=== PATIENT | male | born 1960 | race Caucasian/White ===

== ENCOUNTER 2018-08-05 10:20 | Emergency (ER) | payer MEDICARE, OTHER ==
[~2018-08-05] VITALS: Ht 170.2 cm; Wt 81.2 kg
--- NOTE | 2018-08-05 10:30 | NUR ---
BETH 40 FROM [facility] FOR AMS, PATIENT WAS FOUND ON THE FLOOR, UNRESPONSIVE PER STAFF REPORT TO EMS, UD=700. PT AAOX3, VSS. DENIES CP, SOB, DIZZINESS, LALA, N/V/D AT THIS TIME. DR. BARR @ BS FOR EVAL. PLACED ON JOURNAL BOX INSPECTOR & WILL CONT TO MONITOR.
[2018-08-05] MEDS ORDERED: LEVETIRACETAM (500MG) 1,000 MG in IV NS 0.9% 100 ML IV SCH (11:00)
[2018-08-05] MEDS ORDERED: IV NS 0.9% 1,000 ML BAG IV ONE (11:00)
--- NOTE | 2018-08-05 11:02 | NUR ---
PT TO CT VIA [facility].
[2018-08-05 11:03] LABS: BASOPHILS # (AUTO) 0.1 /CMM (0.0-0.2); BASOPHILS % (AUTO) 0.4 % (0.0-2.0); HEMATOCRIT 46 % (39-51); HEMOGLOBIN 15.9 g/dL (13.5-17.5); LYMPHOCYTES # (AUTO) 1.5 /CMM (0.8-4.8); LYMPHOCYTES % (AUTO) 12.9 % (20.0-44.0); MEAN CORPUSCULAR HGB CONC 35 g/dl (31.0-36.0); MEAN CORPUSCULAR VOLUME 91 fL (80-96); MONOCYTES # (AUTO) 0.7 /CMM (0.1-1.30); MONOCYTES % (AUTO) 6.3 % (2.0-12.0); NEUTROPHILS # (AUTO) 9.4 /CMM (1.8-8.9); NEUTROPHILS % (AUTO) 79.4 % (43.0-81.0); PLATELET COUNT (AUTO) 260 /CMM (150-450); RED BLOOD CELL COUNT(AUTO) 5.01 MIL/uL (4.5-6.0); WHITE BLOOD COUNT (AUTO) 11.9 K/uL (4.3-11.0)
[2018-08-05 11:11] LABS: CARBON DIOXIDE 28 mmol/L (21-32); CHLORIDE 97 mmol/L (98-107); CREATININE 1.2 mg/dL (0.6-1.3); GLUCOSE 123 mg/dL (74-106); SODIUM SERUM 132 mmol/L (136-145); UREA NITROGEN, BLOOD 16 mg/dL (7-18)
[2018-08-05 11:15] LABS: ACETAMINOPHEN < 2 ug/ml (10-30); ALCOHOL, BLOOD < 3 mg/dL (0-0); SALICYLATE 3.3 mg/dL (2.8-20.0)
--- NOTE | 2018-08-05 11:39 | NUR ---
PT BACK FROM CT. MEDICATED PER ERMD ORDER, PT ISH WELL.
--- NOTE | 2018-08-05 13:04 | NUR ---
CALL FROM [facility], SHE WILL SEND TRANSPORTATION TO TAKE PATIENT HOME
--- NOTE | 2018-08-05 14:00 | NUR ---
Patient discharged to home in stable condition. Written and verbal after care instructions given. Patient verbalizes understanding of instruction. IV removed. Catheter intact and site benign. Pressure and 4x4 applied to site. No bleeding noted.
[2018-08-05 15:08] VITALS: BP 138/79
== END 2018-08-05 14:00 | disposition home or self-care (01) ==
LOC: ER 10:25
DX: R55 Syncope and collapse (principal); I10 Essential (primary) hypertension; F29 Unspecified psychosis not due to a substance or known physiological condition; Z88.0 Allergy status to penicillin; Z88.8 Allergy status to other drugs, medicaments and biological substances
CPT/HCPCS: 36415; 70450; 71045; 80048; 80307; 80329; 84484; 85025; 93005; 96365; 99284; G0480; J1953; J7030 ×2

== ENCOUNTER 2018-08-14 10:09 | Emergency (ER) | payer MEDICARE, OTHER ==
[~2018-08-14] VITALS: Ht 165.1 cm; Wt 77.1 kg
--- NOTE | 2018-08-14 10:20 | NUR ---
BIB BY RA. HAMMOND. NAD. CAME IN WITH COMPLAINT OF GENERALIZED BODY PAIN. NO SOB, BREATHING EVEN AND UNLABORED. AWAITING MD DAWN
--- NOTE | 2018-08-14 10:55 | NUR ---
IV LINE ESTABLISEHED, LABS DRAWN AND SENT TO LABS
[2018-08-14] MEDS ORDERED: IV NS 0.9% 1,000 ML BAG IV ONE (11:00)
[2018-08-14 11:01] LABS: BASOPHILS % (AUTO) 0.5 % (0.0-2.0); EOSINOPHILS % (AUTO) 0.6 % (0.0-6.0); HEMATOCRIT 43 % (39-51); HEMOGLOBIN 15.6 g/dL (13.5-17.5); LYMPHOCYTES # (AUTO) 0.9 /CMM (0.8-4.8); MEAN CORPUSCULAR HGB CONC 36 g/dl (31.0-36.0); MEAN CORPUSCULAR VOLUME 90 fL (80-96); MONOCYTES # (AUTO) 0.7 /CMM (0.1-1.30); MONOCYTES % (AUTO) 6.9 % (2.0-12.0); NEUTROPHILS # (AUTO) 8.7 /CMM (1.8-8.9); PLATELET COUNT (AUTO) 309 /CMM (150-450); RED BLOOD CELL COUNT(AUTO) 4.83 MIL/uL (4.5-6.0); WHITE BLOOD COUNT (AUTO) 10.5 K/uL (4.3-11.0)
[2018-08-14 11:06] LABS: CALCIUM, SERUM 8.7 mg/dL (8.5-10.1); CARBON DIOXIDE 28 mmol/L (21-32); CHLORIDE 99 mmol/L (98-107); CREATININE 1.1 mg/dL (0.6-1.3); GLUCOSE 147 mg/dL (74-106); POTASSIUM 3.8 mmol/L (3.5-5.1); SODIUM SERUM 132 mmol/L (136-145); UREA NITROGEN, BLOOD 21 mg/dL (7-18)
[2018-08-14 11:12] LABS: ALANINE AMINOTRANSFERASE 22 U/L (12-78); ALBUMIN 3.4 g/dL (3.4-5.0); ALKALINE PHOSPHATASE 104 U/L (46-116); ASPARTATE AMINOTRANSFERASE 13 U/L (15-37); BILIRUBIN,DIRECT 0.1 mg/dL (0.0-0.2); BILIRUBIN,TOTAL 0.5 mg/dL (0.2-1.0); LIPASE 141 U/L (73-393); TOTAL PROTEIN, SERUM 7.2 g/dL (6.4-8.2)
--- NOTE | 2018-08-14 11:23 | NUR ---
XRAY AT BEDSIDE
--- NOTE | 2018-08-14 11:34 | NUR ---
CONTROL SYSTEMS TECHNICIAN IS CANDIDO BATRES (SISTER) [phone]
[2018-08-14] MEDS ORDERED: HYDROCODONE/APAP 5/325MG 1 EACH TABLET ONE (11:52)
[2018-08-14] MEDS ORDERED: IBUPROFEN 600 MG TABLET PO ONE ×2 (11:52→12:00)
[2018-08-14] MEDS ORDERED: HYDROCODONE/APAP 5/325MG 1 EACH TABLET PO ONE (12:00)
--- NOTE | 2018-08-14 12:35 | NUR ---
IV LINE DC
--- NOTE | 2018-08-14 12:40 | NUR ---
CALLED DAVIE DIETZ W// CARLEY;
--- NOTE | 2018-08-14 12:45 | NUR ---
CALLED [facility] AND SPOKE TO CALLY.
--- NOTE | 2018-08-14 12:49 | NUR ---
[facility] TRIP #[id number] [facility] [id number]
--- NOTE | 2018-08-14 13:02 | NUR ---
CALLED [facility] TO CANCEL TRIP SO [facility] SET UP THEIR OWN TRANSPORT
--- NOTE | 2018-08-14 13:06 | NUR ---
spoke with jake from [facility]. so nicolasa gee sending a vehicle to car pick up driver patient.
--- NOTE | 2018-08-14 13:11 | NUR ---
Patient discharged to home in stable condition. Written and verbal after care instructions given. Patient verbalizes understanding of instruction.
[2018-08-14 13:12] VITALS: BP 138/80
== END 2018-08-14 13:13 ==
LOC: ER 10:14
DX: M79.18 Myalgia, other site (principal); R53.1 Weakness; F29 Unspecified psychosis not due to a substance or known physiological condition; E86.0 Dehydration; F20.9 Schizophrenia, unspecified; G93.40 Encephalopathy, unspecified; I10 Essential (primary) hypertension; Z88.0 Allergy status to penicillin; Z88.8 Allergy status to other drugs, medicaments and biological substances; Z88.9 Allergy status to unspecified drugs, medicaments and biological substances
CPT/HCPCS: 36415; 71045; 80048; 80076; 82550; 83605; 83690; 84484; 85025; 85730; 87040 ×2; 87804 ×2; 93005; 96360; 99285; J7030; 87400

== ENCOUNTER 2018-09-22 11:33 | Emergency (ER) | payer MEDICARE, OTHER ==
[~2018-09-22] VITALS: Ht 167.6 cm; Wt 78.0 kg
--- NOTE | 2018-09-22 11:33 | NUR ---
PT BIBRA FROM [facility] FOR ABD PAIN; PT AAOX4, PT ON MONITOR, VSS, NAD NOTED, PENDING MD DAWN.
[2018-09-22] MEDS ORDERED: ONDANSETRON HCL/PF 4 MG/2 ML VIAL ONE (12:05)
[2018-09-22] MEDS ORDERED: HYDROMORPHONE 1 MG/1 ML DISP.SYRIN ONE (12:05)
[2018-09-22 12:11] LABS: BASOPHILS # (AUTO) 0.1 /CMM (0.0-0.2); BASOPHILS % (AUTO) 1.3 % (0.0-2.0); EOSINOPHILS % (AUTO) 2.9 % (0.0-6.0); HEMATOCRIT 43 % (39-51); HEMOGLOBIN 15.3 g/dL (13.5-17.5); LYMPHOCYTES # (AUTO) 1.3 /CMM (0.8-4.8); LYMPHOCYTES % (AUTO) 18.8 % (20.0-44.0); MEAN CORPUSCULAR HGB CONC 36 g/dl (31.0-36.0); MEAN CORPUSCULAR VOLUME 91 fL (80-96); MONOCYTES # (AUTO) 0.4 /CMM (0.1-1.30); MONOCYTES % (AUTO) 5.4 % (2.0-12.0); NEUTROPHILS # (AUTO) 4.9 /CMM (1.8-8.9); NEUTROPHILS % (AUTO) 71.6 % (43.0-81.0); PLATELET COUNT (AUTO) 272 /CMM (150-450); RED BLOOD CELL COUNT(AUTO) 4.73 MIL/uL (4.5-6.0); WHITE BLOOD COUNT (AUTO) 6.8 K/uL (4.3-11.0)
[2018-09-22] MEDS: HYDROMORPHONE INJ 2 MG/ML DISP.SYRIN IV ONE (12:12)
[2018-09-22] MEDS: ONDANSETRON HCL/PF 4 MG/2 ML VIAL IVP ONE (12:12)
[2018-09-22] MEDS: IV NS 0.9% 1,000 ML BAG IV ONE (12:12)
[2018-09-22 12:15] LABS: CALCIUM, SERUM 8.9 mg/dL (8.5-10.1); CARBON DIOXIDE 28 mmol/L (21-32); CHLORIDE 100 mmol/L (98-107); GLUCOSE 111 mg/dL (74-106); POTASSIUM 4.4 mmol/L (3.5-5.1); SODIUM SERUM 136 mmol/L (136-145); UREA NITROGEN, BLOOD 14 mg/dL (7-18)
[2018-09-22 12:21] LABS: ALANINE AMINOTRANSFERASE 24 U/L (12-78); ALBUMIN 3.3 g/dL (3.4-5.0); ALKALINE PHOSPHATASE 93 U/L (46-116); ASPARTATE AMINOTRANSFERASE 18 U/L (15-37); BILIRUBIN,TOTAL 0.3 mg/dL (0.2-1.0); LIPASE 112 U/L (73-393); TOTAL PROTEIN, SERUM 7.1 g/dL (6.4-8.2)
--- NOTE | 2018-09-22 13:45 | NUR ---
C/O FEELING DEPRESSED AND HAVE A PLAN ON JUMPING OFF A BUILDING BUT WANTS TO COME IN VOLUNTARILY TO [facility]
--- NOTE | 2018-09-22 14:00 | NUR ---
SPOKE TO SANJUANITA BLOCK FROM [facility], PER SANJUANITA, PT'S PAPERWORK NEEDS TO STATE "MEDICALLY CLEARED", DR. CARTWRIGHT MADE A HAND-WRITTEN NOTE STATING MEDICALLY CLEARED AND FAXED TO [facility]. PER SANJUANITA PT IS ACCEPTED AND CAN GO TO [facility].
--- NOTE | 2018-09-22 14:27 | NUR ---
PT LEFT IN STABLE CONDITION BACK TO [facility], PT LEFT VIA PRIVATE AMBULANCE, VSS, NAD NOTED, PT LEFT VIA GURNEY WITH 2EMTS, REPORT GIVEN TO [facility].
[2018-09-22 14:32] VITALS: BP 123/86
== END 2018-09-22 14:34 | disposition home or self-care (01) ==
LOC: ER 11:33
DX: R10.13 Epigastric pain (principal); G93.40 Encephalopathy, unspecified; I10 Essential (primary) hypertension; F29 Unspecified psychosis not due to a substance or known physiological condition; F20.9 Schizophrenia, unspecified; Z88.0 Allergy status to penicillin; Z60.2 Problems related to living alone; Z88.8 Allergy status to other drugs, medicaments and biological substances
CPT/HCPCS: 36415; 71045; 74176; 80048; 80076; 82550; 83690; 84484; 85025; 93005; 96374; 96375; 99284; J1170; J2405; J7030

== ENCOUNTER 2018-09-23 10:32 | Emergency (ER) | payer MEDICARE, OTHER ==
[~2018-09-23] VITALS: Ht 167.6 cm; Wt 76.2 kg
[2018-09-23 10:51] LABS: BASOPHILS # (AUTO) 0.1 /CMM (0.0-0.2); BASOPHILS % (AUTO) 0.9 % (0.0-2.0); EOSINOPHILS % (AUTO) 1.2 % (0.0-6.0); HEMATOCRIT 47 % (39-51); HEMOGLOBIN 16.5 g/dL (13.5-17.5); LYMPHOCYTES # (AUTO) 1.7 /CMM (0.8-4.8); LYMPHOCYTES % (AUTO) 15.1 % (20.0-44.0); MEAN CORPUSCULAR HGB CONC 36 g/dl (31.0-36.0); MEAN CORPUSCULAR VOLUME 91 fL (80-96); MONOCYTES # (AUTO) 0.5 /CMM (0.1-1.30); MONOCYTES % (AUTO) 4.6 % (2.0-12.0); NEUTROPHILS # (AUTO) 8.7 /CMM (1.8-8.9); NEUTROPHILS % (AUTO) 78.2 % (43.0-81.0); PLATELET COUNT (AUTO) 311 /CMM (150-450); RED BLOOD CELL COUNT(AUTO) 5.12 MIL/uL (4.5-6.0); WHITE BLOOD COUNT (AUTO) 11.2 K/uL (4.3-11.0)
[2018-09-23] MEDS ORDERED: HYDROCODONE/APAP 5/325MG 1 EACH TABLET ONE (10:51)
[2018-09-23 10:58] LABS: CALCIUM, SERUM 9.4 mg/dL (8.5-10.1); CARBON DIOXIDE 25 mmol/L (21-32); CHLORIDE 99 mmol/L (98-107); CREATININE 1.1 mg/dL (0.6-1.3); GLUCOSE 100 mg/dL (74-106); POTASSIUM 4.7 mmol/L (3.5-5.1); SODIUM SERUM 135 mmol/L (136-145); UREA NITROGEN, BLOOD 18 mg/dL (7-18)
[2018-09-23] MEDS ORDERED: HYDROCODONE/APAP 5/325MG 1 EACH TABLET PO ONE (11:00)
--- NOTE | 2018-09-23 11:38 | NUR ---
CALLED [facility] FOR TRANSPORT BACK TO [facility], ETA 45 MIN- 1 HOUR, TRIP #[id number]
[2018-09-23 12:33] VITALS: BP 119/73
== END 2018-09-23 12:34 ==
LOC: ER 10:33
DX: M25.512 Pain in left shoulder (principal); F29 Unspecified psychosis not due to a substance or known physiological condition; G93.40 Encephalopathy, unspecified; I10 Essential (primary) hypertension; F20.9 Schizophrenia, unspecified; Z60.2 Problems related to living alone; Z88.0 Allergy status to penicillin; Z88.8 Allergy status to other drugs, medicaments and biological substances
CPT/HCPCS: 36415; 71045-TC; 80048-TC; 84484-TC; 85025-TC

== ENCOUNTER 2018-09-29 07:36 | Emergency (ER) | payer MEDICARE, OTHER ==
[~2018-09-29] VITALS: Ht 167.6 cm; Wt 78.0 kg
--- NOTE | 2018-09-29 07:40 | NUR ---
PT BIBRA39, FROM [facility], C/O CHEST PAIN NON RADIATING, PT IS AAOX3, NOT IN RESPIRATORY DISTRESS, V/S STABLE, KEPT RESTED AND COMFORTABLE, WILL CONTINUE TO MONITOR.
--- NOTE | 2018-09-29 07:45 | NUR ---
SEEN AND EXAMINED BY DR. CAGE.
--- NOTE | 2018-09-29 07:50 | NUR ---
BLOOD DRAWNED AND SENT TO LAB.
--- NOTE | 2018-09-29 07:55 | NUR ---
GOLD LEAF PRINTER AT BEDSIDE FOR XRAY.
[2018-09-29 08:04] LABS: BASOPHILS # (AUTO) 0.2 /CMM (0.0-0.2); BASOPHILS % (AUTO) 2.4 % (0.0-2.0); EOSINOPHILS % (AUTO) 5.6 % (0.0-6.0); HEMATOCRIT 46 % (39-51); HEMOGLOBIN 16.4 g/dL (13.5-17.5); LYMPHOCYTES # (AUTO) 1.4 /CMM (0.8-4.8); LYMPHOCYTES % (AUTO) 17.7 % (20.0-44.0); MEAN CORPUSCULAR HGB CONC 36 g/dl (31.0-36.0); MEAN CORPUSCULAR VOLUME 91 fL (80-96); MONOCYTES # (AUTO) 0.5 /CMM (0.1-1.30); MONOCYTES % (AUTO) 5.9 % (2.0-12.0); NEUTROPHILS # (AUTO) 5.5 /CMM (1.8-8.9); NEUTROPHILS % (AUTO) 68.4 % (43.0-81.0); PLATELET COUNT (AUTO) 294 /CMM (150-450); RED BLOOD CELL COUNT(AUTO) 5.08 MIL/uL (4.5-6.0)
[2018-09-29 08:08] LABS: CALCIUM, SERUM 9.1 mg/dL (8.5-10.1); CARBON DIOXIDE 26 mmol/L (21-32); CHLORIDE 95 mmol/L (98-107); GLUCOSE 103 mg/dL (74-106); POTASSIUM 4.5 mmol/L (3.5-5.1); SODIUM SERUM 128 mmol/L (136-145); UREA NITROGEN, BLOOD 18 mg/dL (7-18)
[2018-09-29 08:13] LABS: ALANINE AMINOTRANSFERASE 25 U/L (12-78); ALBUMIN 3.8 g/dL (3.4-5.0); ALKALINE PHOSPHATASE 90 U/L (46-116); ASPARTATE AMINOTRANSFERASE 16 U/L (15-37); BILIRUBIN,DIRECT 0.1 mg/dL (0.0-0.2); BILIRUBIN,TOTAL 0.4 mg/dL (0.2-1.0); TOTAL PROTEIN, SERUM 7.6 g/dL (6.4-8.2)
--- NOTE | 2018-09-29 08:45 | NUR ---
[facility] [place] BACK,AIRBORNE SENSOR SPECIALIST IN A MEETING,WILL CALL BACK IN 30 MINUTES
--- NOTE | 2018-09-29 08:57 | NUR ---
REPORT GIVEN TO GALE LEWIS FOR [facility]
--- NOTE | 2018-09-29 09:03 | NUR ---
CALLED TRANSPORT ETA 60 MINS IS PER RUN NUMBER [id number]
--- NOTE | 2018-09-29 09:20 | NUR ---
FOOD TRAY PROVIDED.
--- NOTE | 2018-09-29 10:16 | NUR ---
REPORT GIVEN TO EMT FOR TRANSFER BACK TO [facility].
[2018-09-29 10:19] VITALS: BP 156/80
== END 2018-09-29 10:21 ==
LOC: ER 07:38
DX: R07.89 Other chest pain (principal); G93.40 Encephalopathy, unspecified; I10 Essential (primary) hypertension; F29 Unspecified psychosis not due to a substance or known physiological condition; F20.9 Schizophrenia, unspecified; Z88.0 Allergy status to penicillin; Z88.8 Allergy status to other drugs, medicaments and biological substances; Z88.5 Allergy status to narcotic agent; Z60.2 Problems related to living alone
CPT/HCPCS: 36415; 71045-TC; 80048-TC; 80076-TC; 84484-TC; 85025-TC

== ENCOUNTER 2021-06-29 12:19 | Inpatient (IN) | payer MEDICARE, OTHER ==
[~2021-06-29] VITALS: Ht 170.2 cm; Wt 67.6 kg
[2021-06-29 20:00] VITALS: BP 136/73
[2021-06-29] MEDS ORDERED: MAG HYDROX/AL HYDROX/SIMETH 30 ML UDC PO PRN (20:00)
[2021-06-29] MEDS ORDERED: ZOLPIDEM TARTRATE 5 MG TABLET PO PRN (20:00)
[2021-06-29] MEDS ORDERED: APIX5TAB PO (20:15)
[2021-06-29] MEDS ORDERED: ALBU8.5H8 INH (20:15)
[2021-06-29] MEDS ORDERED: LOSA50TA3 PO (20:17)
[2021-06-29] MEDS ORDERED: GABA300C PO (20:17)
[2021-06-29] MEDS ORDERED: TAMS-12 PO (20:18)
[2021-06-29] MEDS ORDERED: PANT40TA2 PO (20:19)
[2021-06-29] MEDS ORDERED: PANT20TA2 PO (20:20)
[2021-06-29] MEDS ORDERED: ATOR10TA PO (20:21)
[2021-06-29] MEDS ORDERED: LITH150C PO (20:22)
[2021-06-29] MEDS ORDERED: OLAN5TAB3 PO (20:22)
[2021-06-29] MEDS ORDERED: diphenhydrAMINE HCL 25 MG CAPSULE PO PRN (20:30)
[2021-06-29] MEDS ORDERED: BLOOD SUGAR DIAGNOSTIC 1 EACH STRIP IN ONE (20:30)
--- NOTE | 2021-06-29 20:30 | NUR ---
GPS RN NOTE PATIENT REQUESTED TO CALL HIS SISTER CANDIDO IN THE MORNING TO INFORM HER ABOUT HIS ADMISSION AT [facility] GPS UNIT. WILL CALL CANDIDO IN AM.
--- NOTE | 2021-06-29 20:45 | NUR ---
GPS RN NOTE PATIENT HAD SNACK/JUICE AND TOLERATED WELL.
[2021-06-29 20:53] VITALS: BP 136/73
--- NOTE | 2021-06-29 20:55 | NUR ---
GPS FORESTRY ADVISER NOTE: ADMITTED 60 YRS MALE PATIENT FROM [facility] DIRECT ADMIT, ARRIVAL TIME 1814. PATIENT'S REPORT WAS RECEIVED BY AM RN. PER 5150 HOLD, PATIENT REPORTED HE WAS DC FROM [facility] TODAY AND SHORTLY AFTER WENT TO A BUILDING TO THE 5TH FLOOR AND WANTED TO JUMP OFF. HE REPORTED MULTIPLE PROBLEMS (HOMELESSNESS, HX OF INCARCERATIONS, GF HAD MIS CARRIAGE) THAT PERPETUATES HIS DEPRESSION, HE ADMITTED TO SELF MEDICATING WITH DRUGS. PATIENT ENDORSED CONTINUED SI AND WAS UNABLE TO CONTRACT FOR SAFETY. PT. PRESENTS A DTS REQUIRING INPT HOSPITALIZATION FOR STABILIZATION. UPON ADMISSION ASSESSMENT, PATIENT IS A & O X 2-3, CONFUSED AND DISORGANIZED AT TIMES. PER PATIENT, " I HAVE DEMENTIA SINCE 5 YEARS AND I FORGET THINGS." PATIENT IS ATTENTION SEEKING, LABILE, NEEDY, ANXIOUS, RESTLESS, DISHEVELED. PATIENT CURRENTLY DENIES ANY SUICIDAL IDEATION AND HOMICIDAL IDEATION AT THIS TIME. PER PATIENT," I HAD NERVOUS BREAKDOWN BUT I FEEL SAFE HERE NOW." PATIENT CONTRACTS FOR SAFETY. PATIENT'S RESPIRATIONS APPEARED EVEN AND UNLABORED WITH NO SOB NOTED. PATIENT ADVISED OF HOLD AND PATIENT'S RIGHT BOOKLET WAS GIVEN. PATIENTS BELONGINGS CHECKED FOR CONTRABAND. FACE PICTURE TAKEN. SKIN CLEAR/INTACT. PATIENT REFUSED TO SIGN CONSENT FORMS. AMBULATORY, UNSTEADY GAIT, USES WALKER, PER PATIENT," I FEEL WEAK AND DIZZY SOMETIMES, I FELL MULTIPLE TIMES IN THE PAST." CONTINENT/BRP. PATIENT REFUSED FLU VACCINE. PER PATIENT HE HAD COVID VACCINE IN 2020 TRISTON AND TRISTON BUT CAN NOT RECALL THE DATE. SNACK OFFERED AND TOLERATED WELL. PATIENT EDUCATED SMOKING PIPE REPAIRER LIGHT. BED ALARM ON. SIDE RAILS UP X2 FOR SAFETY. BED LOCKED, LOW, WILL CONTINUE TO MONITOR Q15 MINUTES FOR SAFETY AND BEHAVIOR.
[2021-06-29] MEDS: MAGNESIUM HYDROXIDE 30 ML UDC PO PRN (21:13)
--- NOTE | 2021-06-29 21:15 | NUR ---
GPS RN NOTE: CONSTIPATION PATIENT VERBALIZED THAT HE IS CONSTIPATED, HE HAD SMALL BM LAST NIGHT BUT STILL FEELS CONSTIPATED. PER PATIENT REQUEST MILK OF MAGNESIA 30 ML PO ADMINISTERED. WILL CONTINUE TO MONITOR.
--- NOTE | 2021-06-29 21:55 | NUR ---
GPS RN NOTE: ANXIETY PATIENT VERBALIZED FEELING ANXIOUS, NERVOUS AND REQUESTED TO TAKE BENADRYL. PRN BENADRYL 25 MG PO ADMINISTERED. WILL CONTINUE TO MONITOR.
[2021-06-30] MEDS: ACETAMINOPHEN 325 MG TABLET PO PRN (02:01)
--- NOTE | 2021-06-30 02:03 | NUR ---
GPS RN NOTE: PAIN PATIENT C/O LOWER BACK PAIN 07/05 AND REQUESTED TO TAKE TYLENOL. PRN TYLENOL 650 MG PO ADMINISTERED. WILL CONTINUE TO MONITOR.
[2021-06-30 07:10] LABS: BASOPHILS # (AUTO) 0.1 K/uL (0.0-0.2); BASOPHILS % (AUTO) 0.8 % (0.0-2.0); HEMATOCRIT 45 % (39-51); HEMOGLOBIN 15.1 g/dL (13.5-17.5); LYMPHOCYTES # (AUTO) 2.1 K/uL (0.8-4.8); LYMPHOCYTES % (AUTO) 21.4 % (20.0-44.0); MEAN CORPUSCULAR HGB CONC 34 g/dl (31.0-36.0); MEAN CORPUSCULAR VOLUME 92 fL (80-96); MONOCYTES # (AUTO) 0.8 K/uL (0.1-1.30); MONOCYTES % (AUTO) 7.8 % (2.0-12.0); NEUTROPHILS # (AUTO) 5.8 K/uL (1.8-8.9); PLATELET COUNT (AUTO) 287 K/uL (150-450); RED BLOOD CELL COUNT(AUTO) 4.84 MIL/uL (4.5-6.0); WHITE BLOOD COUNT (AUTO) 9.7 K/uL (4.3-11.0)
--- NOTE | 2021-06-30 07:19 | NUR ---
GPS RN NOTE: FAMILY NOTIFIED CALLED MITRA NÚÑEZ AT [phone] AND INFORMED ABOUT PATIENT'S ADMISSION AT GPS UNIT. MITRA WANTS TO TALK TO RESOURCE CENTER TEACHER ABOUT PATIENT'S PLACEMENT AT SAFE PLACE POST DISCHARGE SINCE PATIENT IS HOMELESS. ENDORSED TO AM RN TO RELAY THE MESSAGE TO RESOURCE CENTER TEACHER.
[2021-06-30 07:21] LABS: BILIRUBIN,URINE NEGATIVE (NEGATIVE); COLOR,URINE YELLOW (YELLOW); LEUKOCYTE ESTERASE ,URINE NEGATIVE (NEGATIVE); NITRITE, URINE NEGATIVE (NEGATIVE); PROTEIN,URINE NEGATIVE (NEGATIVE); UGLUCOSE NEGATIVE (NEGATIVE); UROBILINOGEN,URINE 0.2 EU/dL (0.2)
[2021-06-30 07:24] LABS: THYROID STIMULATING HORMONE 4.124 uIU/mL (0.358-3.74)
[2021-06-30 07:46] LABS: CREATININE 1.2 mg/dL (0.6-1.3); POTASSIUM 4.5 mmol/L (3.5-5.1)
[2021-06-30 08:00] VITALS: BP 112/60
[2021-06-30] MEDS: TAMSULOSIN 0.4 MG CAP.SR.24H PO SCH (08:25)
[2021-06-30] MEDS: PANTOPRAZOLE 40 MG TABLET.DR PO SCH (08:25)
[2021-06-30] MEDS: LOSARTAN POTASSIUM 50 MG TABLET PO SCH (08:26)
[2021-06-30] MEDS: NICOTINE PATCH (14MG) 14 MG PATCH.TD24 TD SCH (08:26)
[2021-06-30] MEDS: GABAPENTIN 300 MG CAPSULE PO SCH ×2 (08:26→16:15)
[2021-06-30] MEDS: APIXABAN 5 MG TABLET PO SCH ×2 (08:29→16:15)
[2021-06-30] MEDS: OLANZAPINE 5 MG TABLET PO SCH ×2 (10:31→20:35)
[2021-06-30] MEDS: LITHIUM CARBONATE 150 MG CAPSULE PO SCH ×2 (10:31→16:14)
[2021-06-30] MEDS: hydrOXYzine PAMOATE 25 MG CAPSULE PO PRN (12:53)
--- NOTE | 2021-06-30 13:03 | NUR ---
Called RT ext [phone] and spoke to Chencho regarding the EKG exam.
--- NOTE | 2021-06-30 13:26 | NUR ---
Dr. Burton made aware of the EKG result and no new order.
[2021-06-30 16:00] VITALS: BP 107/69
[2021-06-30] MEDS: ATORVASTATIN 10 MG TABLET PO SCH (17:12)
[2021-06-30 20:00] VITALS: BP 100/63
[2021-06-30] MEDS: ALBUTEROL FS 2.5 MG/0.5 ML VIAL.NEB NEB PRN (20:02)
[2021-06-30 21:07] VITALS: BP 100/63
[2021-07-01] MEDS: ALBUTEROL FS 2.5 MG/0.5 ML VIAL.NEB NEB PRN (01:47)
[2021-07-01 08:00] VITALS: BP 135/80
[2021-07-01] MEDS: PANTOPRAZOLE 40 MG TABLET.DR PO SCH (08:23)
[2021-07-01] MEDS: LITHIUM CARBONATE 150 MG CAPSULE PO SCH ×2 (08:44→16:31)
[2021-07-01] MEDS: NICOTINE PATCH (14MG) 14 MG PATCH.TD24 TD SCH (08:44)
[2021-07-01] MEDS: GABAPENTIN 300 MG CAPSULE PO SCH ×2 (08:44→16:31)
[2021-07-01] MEDS: LOSARTAN POTASSIUM 50 MG TABLET PO SCH (08:44)
[2021-07-01] MEDS: OLANZAPINE 5 MG TABLET PO SCH ×2 (08:45→20:14)
[2021-07-01] MEDS: TAMSULOSIN 0.4 MG CAP.SR.24H PO SCH (08:45)
[2021-07-01] MEDS: APIXABAN 5 MG TABLET PO SCH ×2 (08:46→16:31)
[2021-07-01] MEDS: hydrOXYzine PAMOATE 25 MG CAPSULE PO PRN ×2 (12:56→21:02)
[2021-07-01] MEDS: ALBUTEROL SULFATE 8 GM HFA.AER.AD IH PRN ×2 (14:06→20:08)
[2021-07-01 16:00] VITALS: BP 125/53
[2021-07-01] MEDS: ATORVASTATIN 10 MG TABLET PO SCH (17:01)
[2021-07-01] MEDS: ACETAMINOPHEN 325 MG TABLET PO PRN (20:00)
--- NOTE | 2021-07-01 20:06 | NUR ---
GPS RN NOTES: PATIENT C/O GENERALIZED BODY PAIN. RATES PAIN LEVEL 6/10. TYLENOL 650MG GIVEN PO AT 1999. WILL CONTINUE TO MONITOR.
--- NOTE | 2021-07-01 20:13 | NUR ---
GPS RN NOTES: PATIENT C/O WHEEZING. ALBUTEROL 2PUFFS ADMINISTERED AT 2007. WILL CONTINUE TO MONITOR.
[2021-07-01 20:42] VITALS: BP 118/65
--- NOTE | 2021-07-01 21:07 | NUR ---
GPS RN NOTES: PATIENT C/O ANXIETY. VISTARIL 25MG GIVEN PO AT 2. WILL CONTINUE TO MONITOR.
--- NOTE | 2021-07-02 06:17 | NUR ---
GPS RN NOTES: WEEKLY SKIN ASSESSMENT DONE, SKIN INTACT.
[2021-07-02] MEDS: PANTOPRAZOLE 40 MG TABLET.DR PO SCH (07:30)
[2021-07-02 08:00] VITALS: BP 144/72
[2021-07-02] MEDS: NICOTINE PATCH (14MG) 14 MG PATCH.TD24 TD SCH (08:42)
[2021-07-02] MEDS: GABAPENTIN 300 MG CAPSULE PO SCH ×2 (08:42→17:48)
[2021-07-02] MEDS: TAMSULOSIN 0.4 MG CAP.SR.24H PO SCH (08:42)
[2021-07-02] MEDS: OLANZAPINE 5 MG TABLET PO SCH ×2 (08:42→21:24)
[2021-07-02] MEDS: hydrOXYzine PAMOATE 25 MG CAPSULE PO PRN ×2 (08:43→20:50)
[2021-07-02] MEDS: LITHIUM CARBONATE 150 MG CAPSULE PO SCH ×2 (08:43→17:50)
[2021-07-02] MEDS: LOSARTAN POTASSIUM 50 MG TABLET PO SCH (08:45)
[2021-07-02] MEDS: ALBUTEROL SULFATE 8 GM HFA.AER.AD IH PRN (08:46)
[2021-07-02] MEDS: APIXABAN 5 MG TABLET PO SCH ×2 (08:46→17:49)
--- NOTE | 2021-07-02 09:14 | NUR ---
SW Substance Abuse Intervention: Patient was provided with a brief substance abuse intervention and referred to [facility] ([phone]), [facility] ([phone]), and [facility] ([phone]) and does drugs and drinks alcohol.
--- NOTE | 2021-07-02 09:41 | NUR ---
SW Facility Contact: SW contacted patient's address that he stated that he lived at a sober living located at [address] [place], [place] [address]; ([phone]) and admin stated that pt has not been with them since 2018.
--- NOTE | 2021-07-02 10:04 | NUR ---
THOR Initial Discharge Plan: Patient is currently homeless. Patient stated he wanted to be placed at a halfway facility. THOR contacted pt.'s sister Leena Valdez ([phone]) to discuss treatment and discharge plan. THOR will work with patient, family and MD to form a safe and proper discharge.
--- NOTE | 2021-07-02 10:05 | NUR ---
SW Admit Source: Pt was brought to the hospital and placed on a 5150 hold for danger to himself. He was discharged from [facility] and then went to a parking structure on the 5th floor and had thoughts of jumping off the kristian. Pt has been homeless for 3-4 years. SW stated he was living at a sober living. SW confirmed with sober living ([phone]) and stated pt has not been their resident since 2018. Pt is agreeable of SW finding a placement.
--- NOTE | 2021-07-02 10:39 | NUR ---
THOR Family Contact: SW called pt.'s sister Leena Valdez ([phone]) and discussed pt.'s treatment and discharge plan. Leena ([phone]) stated that the pt. has a second officer and provided the second officer's sports information director Edenilson ([phone]). Leena ([phone]) stated that she resides in [place] stating that she lives in a [facility]. Leena ([phone]) stated that the pt. was at three hospitals prior to this admission. Leena ([phone]) stated that the pt. doesn't have a conservator or a POA.
--- NOTE | 2021-07-02 10:50 | NUR ---
THOR Note: THOR called pt.'s intelligence officer basic Officer Edenilson ([phone]) and the number was an operating system. Track Surfacing Machine Operator stated that the pt. has a new intelligence officer basic, Officer Elvis ([phone]). THOR called Officer Elvis ([phone]) but the voicemail box was full.
--- NOTE | 2021-07-02 11:04 | NUR ---
Vice Principal Contact: SW attempted to contact pt's new catapult and arresting gear officer twice, Officer Elvis ([phone]) but the voicemail box was full. SW will attempt to contact again.
--- NOTE | 2021-07-02 13:21 | NUR ---
THOR Individual Therapy: SW attempted to conduct individual therapy. However, pt appeared to be labile, hyperverbal, and tangential. SW was unable to conduct proper therapy at this time.
[2021-07-02] MEDS: ACETAMINOPHEN 325 MG TABLET PO PRN (13:46)
--- NOTE | 2021-07-02 13:46 | NUR ---
PATIENT C/O BACK PAIN MEDICATED WITH TYLENOL 650MG X1 WILL CONTINUE TO MONITOR .
[2021-07-02 16:00] VITALS: BP 143/75
[2021-07-02] MEDS: ATORVASTATIN 10 MG TABLET PO SCH (18:14)
[2021-07-02 20:00] VITALS: BP 133/66
--- NOTE | 2021-07-02 20:54 | NUR ---
RN NOTES: ANXIETY PT. SCREAMING YELLING IN THE HALLWAY , VERY ANXIOUS, PARANOID ,PO PRN VISTARIL 25 MG GIVEN ,WILL CONTINUE TO MONITOR.
[2021-07-03 08:00] VITALS: BP 142/88
[2021-07-03] MEDS: OLANZAPINE 5 MG TABLET PO SCH ×2 (08:08→21:05)
[2021-07-03] MEDS: hydrOXYzine PAMOATE 25 MG CAPSULE PO PRN ×2 (08:08→17:59)
[2021-07-03] MEDS: TAMSULOSIN 0.4 MG CAP.SR.24H PO SCH (08:08)
[2021-07-03] MEDS: LITHIUM CARBONATE 150 MG CAPSULE PO SCH ×2 (08:08→17:59)
[2021-07-03] MEDS: GABAPENTIN 300 MG CAPSULE PO SCH ×2 (08:09→17:59)
[2021-07-03] MEDS: LOSARTAN POTASSIUM 50 MG TABLET PO SCH (08:09)
[2021-07-03] MEDS: NICOTINE PATCH (14MG) 14 MG PATCH.TD24 TD SCH ×2 (08:09→08:21)
[2021-07-03] MEDS: PANTOPRAZOLE 40 MG TABLET.DR PO SCH (08:09)
--- NOTE | 2021-07-03 08:10 | NUR ---
RN NOTE Patient is very anxious, paranoid, and very agitated. PRN Vistaril 25 mg po given. Will continue to monitor.
[2021-07-03] MEDS: APIXABAN 5 MG TABLET PO SCH ×2 (08:11→17:59)
[2021-07-03] MEDS: MUPIROCIN OINT 2% 22 GM TUBE NS SCH ×2 (10:19→21:06)
[2021-07-03] MEDS: ACETAMINOPHEN 325 MG TABLET PO PRN ×2 (12:22→19:33)
--- NOTE | 2021-07-03 12:23 | NUR ---
RN NOTE Patient complained of headache, PRN Tylenol given. Will continue to monitor.
[2021-07-03 16:00] VITALS: BP 116/57
[2021-07-03] MEDS: ATORVASTATIN 10 MG TABLET PO SCH (18:01)
--- NOTE | 2021-07-03 19:36 | NUR ---
GPS RN NOTES: PATIENT C/O BACK PAIN. TYLENOL 650MG GIVEN PO AT 1933. WILL CONTINUE TO MONITOR.
[2021-07-03 20:00] VITALS: BP 106/59
--- NOTE | 2021-07-03 21:14 | NUR ---
GPS RN NOTES: ZYPREXA 2.5MG WASTED PER PARTIAL DOSE ORDER. WILL CONTINUE TO MONITOR.
[2021-07-04 08:00] VITALS: BP 134/78
[2021-07-04] MEDS: GABAPENTIN 300 MG CAPSULE PO SCH ×2 (08:11→17:28)
[2021-07-04] MEDS: PANTOPRAZOLE 40 MG TABLET.DR PO SCH (08:11)
[2021-07-04] MEDS: OLANZAPINE 5 MG TABLET PO SCH ×2 (08:12→20:10)
[2021-07-04] MEDS: LOSARTAN POTASSIUM 50 MG TABLET PO SCH (08:12)
[2021-07-04] MEDS: TAMSULOSIN 0.4 MG CAP.SR.24H PO SCH (08:13)
[2021-07-04] MEDS: APIXABAN 5 MG TABLET PO SCH ×2 (08:15→17:30)
[2021-07-04] MEDS: NICOTINE PATCH (14MG) 14 MG PATCH.TD24 TD SCH (08:19)
[2021-07-04] MEDS: MUPIROCIN OINT 2% 22 GM TUBE NS SCH ×2 (08:20→20:10)
[2021-07-04] MEDS ORDERED: LITHIUM CARBONATE 150 MG CAPSULE PO SCH (08:30)
--- NOTE | 2021-07-04 08:40 | NUR ---
SNF Referral: THOR sent clinicals to [facility] ([phone]) for placement option. THOR sent H & P, progress notes, and medication list.
[2021-07-04] MEDS: hydrOXYzine PAMOATE 25 MG CAPSULE PO PRN (10:15)
--- NOTE | 2021-07-04 10:18 | NUR ---
VISTARIL 25MG PRN GIVEN FOR AGITATION. WILL CONTINUE TO MONITOR.
--- NOTE | 2021-07-04 11:11 | NUR ---
Court Hearing: Patient's court hearing for 7550 was today and it was upheld for GD.
--- NOTE | 2021-07-04 11:12 | NUR ---
SNF Contact: SW received a phone call from Kerline whitlock from [facility] ([phone]) who stated that pt is accepted.
[2021-07-04] MEDS: ACETAMINOPHEN 325 MG TABLET PO PRN ×2 (11:18→20:10)
--- NOTE | 2021-07-04 11:19 | NUR ---
Patient complained of headache, PRN Tylenol given. Will continue to monitor.
[2021-07-04] MEDS: LITHIUM CARBONATE 150 MG CAPSULE PO SCH ×2 (13:17→17:28)
[2021-07-04 16:00] VITALS: BP 105/66
[2021-07-04] MEDS: ATORVASTATIN 10 MG TABLET PO SCH (17:28)
[2021-07-04 20:00] VITALS: BP 127/81
[2021-07-05] MEDS: PANTOPRAZOLE 40 MG TABLET.DR PO SCH (07:59)
[2021-07-05 08:00] VITALS: BP 149/61
[2021-07-05] MEDS: MUPIROCIN OINT 2% 22 GM TUBE NS SCH ×2 (08:00→20:05)
[2021-07-05] MEDS: OLANZAPINE 5 MG TABLET PO SCH ×2 (08:00→20:04)
[2021-07-05] MEDS: hydrOXYzine PAMOATE 25 MG CAPSULE PO PRN ×2 (08:00→16:00)
[2021-07-05] MEDS: GABAPENTIN 300 MG CAPSULE PO SCH ×2 (08:00→16:01)
[2021-07-05] MEDS: TAMSULOSIN 0.4 MG CAP.SR.24H PO SCH (08:00)
[2021-07-05] MEDS: LITHIUM CARBONATE 150 MG CAPSULE PO SCH ×3 (08:01→16:00)
[2021-07-05] MEDS: LOSARTAN POTASSIUM 50 MG TABLET PO SCH (08:01)
[2021-07-05] MEDS: APIXABAN 5 MG TABLET PO SCH ×2 (08:02→16:01)
[2021-07-05] MEDS: NICOTINE PATCH (14MG) 14 MG PATCH.TD24 TD SCH (08:07)
[2021-07-05] MEDS: ACETAMINOPHEN 325 MG TABLET PO PRN ×2 (12:53→22:40)
[2021-07-05 16:00] VITALS: BP 116/73
[2021-07-05] MEDS: ATORVASTATIN 10 MG TABLET PO SCH (17:30)
[2021-07-05 20:00] VITALS: BP 132/63
--- NOTE | 2021-07-05 22:42 | NUR ---
Pt requested PRN Tylenol - c/o mild pain- headache, PRN Tylenol 650 MG given. Cont to monitor.
--- NOTE | 2021-07-06 06:33 | NUR ---
Pt slept total of 6 hrs last night, -no significant change of condition noted during shift, awake- no s/sx of acute distress, tolerated meds. Will endorse care to oncoming nurse.
[2021-07-06] MEDS: ALBUTEROL SULFATE 8 GM HFA.AER.AD IH PRN ×2 (07:25→18:48)
[2021-07-06 08:00] VITALS: BP 120/77
[2021-07-06] MEDS: GABAPENTIN 300 MG CAPSULE PO SCH ×2 (08:06→16:15)
[2021-07-06] MEDS: OLANZAPINE 5 MG TABLET PO SCH ×2 (08:06→21:43)
[2021-07-06] MEDS: LOSARTAN POTASSIUM 50 MG TABLET PO SCH (08:06)
[2021-07-06] MEDS: TAMSULOSIN 0.4 MG CAP.SR.24H PO SCH (08:06)
[2021-07-06] MEDS: LITHIUM CARBONATE 150 MG CAPSULE PO SCH ×5 (08:07→16:15)
[2021-07-06] MEDS: PANTOPRAZOLE 40 MG TABLET.DR PO SCH (08:07)
[2021-07-06] MEDS: APIXABAN 5 MG TABLET PO SCH ×2 (08:08→16:16)
[2021-07-06] MEDS: NICOTINE PATCH (14MG) 14 MG PATCH.TD24 TD SCH (08:08)
[2021-07-06] MEDS: MUPIROCIN OINT 2% 22 GM TUBE NS SCH ×2 (08:08→21:39)
[2021-07-06] MEDS: hydrOXYzine PAMOATE 25 MG CAPSULE PO PRN (11:59)
[2021-07-06] MEDS: ACETAMINOPHEN 325 MG TABLET PO PRN (14:00)
--- NOTE | 2021-07-06 14:02 | NUR ---
Pt. is complaining on right shoulder pain and tylenol 2 tabs given and will continue to monitor.
[2021-07-06 16:00] VITALS: BP 105/64
[2021-07-06] MEDS: ATORVASTATIN 10 MG TABLET PO SCH (18:05)
[2021-07-06 19:59] VITALS: BP 101/52
[2021-07-06 20:00] VITALS: BP 101/52
[2021-07-07 08:00] VITALS: BP 136/71
[2021-07-07] MEDS: PANTOPRAZOLE 40 MG TABLET.DR PO SCH (08:38)
[2021-07-07] MEDS: NICOTINE PATCH (14MG) 14 MG PATCH.TD24 TD SCH (09:00)
[2021-07-07] MEDS: GABAPENTIN 300 MG CAPSULE PO SCH ×2 (09:58→16:49)
[2021-07-07] MEDS: TAMSULOSIN 0.4 MG CAP.SR.24H PO SCH (09:58)
[2021-07-07] MEDS: LITHIUM CARBONATE 150 MG CAPSULE PO SCH ×3 (09:58→16:49)
[2021-07-07] MEDS: LOSARTAN POTASSIUM 50 MG TABLET PO SCH (09:58)
[2021-07-07] MEDS: OLANZAPINE 5 MG TABLET PO SCH ×2 (09:58→20:16)
[2021-07-07] MEDS: APIXABAN 5 MG TABLET PO SCH ×2 (09:59→16:52)
[2021-07-07] MEDS: MUPIROCIN OINT 2% 22 GM TUBE NS SCH ×2 (10:07→20:16)
[2021-07-07] MEDS: hydrOXYzine PAMOATE 25 MG CAPSULE PO PRN (11:06)
--- NOTE | 2021-07-07 11:07 | NUR ---
RN-NOTES NOTED PATIENT PACING IN THE HALLWAY TALKING TO SELF IRRITABLE WHEN APPROACH. VISTARIL 25MG P.O GIVEN PRN ORDER. WILL CONT. MONITORING FOR SAFETY AND BEHAVIOR.
--- NOTE | 2021-07-07 12:10 | NUR ---
RN-NOTES PATIENT LYING IN BED AWAKE,ALERT CALM,NO ACUTE DISTRESS NOTED.
[2021-07-07] MEDS: MAGNESIUM HYDROXIDE 30 ML UDC PO PRN (12:42)
--- NOTE | 2021-07-07 12:44 | NUR ---
RN-NOTES PATIENT REQUESTING FOR MOM. MOM 30ML GIVEN PRN ORDER.
[2021-07-07 16:00] VITALS: BP 100/66
[2021-07-07] MEDS: ATORVASTATIN 10 MG TABLET PO SCH (17:06)
--- NOTE | 2021-07-07 19:30 | NUR ---
GPS RN NOTE RECIEVED PT AWAKE IN BED. NO S/S OR COMPLAINTS AT THIS TIME. NO S/S OF APPARENT DISTRESS AT THIS TIME. PATIENT BREATHING EVEN AND UNLABORED WITH EQUAL RISE AND FALL OF CHEST. PT IS A/O X3. PT IS COMPLIENT WITH MEDICATION, DISORGANIZED, ANXIOUS, AND COOPERATIVE. PT DENIES SI AND HI AT THIS TIME. PT AMBULATORY AND STEADY GAIT. PT HAS NO NEEDS AT THIS TIME. PT EDUCATED ON USE OF CALL LIGHT. PT BED RAILS UP X2 FOR SAFETY. BED IS LOCKED AND LOW. WILL CONTINUE TO MONITOR Q15 MIN WITH THE HELP OF STAFF TO MAINTIN SAFETY.
[2021-07-07 20:00] VITALS: BP 109/55
[2021-07-08 08:00] VITALS: BP 103/60
[2021-07-08] MEDS: PANTOPRAZOLE 40 MG TABLET.DR PO SCH (08:29)
[2021-07-08] MEDS: LITHIUM CARBONATE 150 MG CAPSULE PO SCH ×2 (08:52→13:38)
[2021-07-08] MEDS: OLANZAPINE 5 MG TABLET PO SCH ×2 (08:52→20:21)
[2021-07-08] MEDS: TAMSULOSIN 0.4 MG CAP.SR.24H PO SCH (08:52)
[2021-07-08] MEDS: LOSARTAN POTASSIUM 50 MG TABLET PO SCH (08:55)
[2021-07-08] MEDS: APIXABAN 5 MG TABLET PO SCH ×2 (08:55→16:20)
[2021-07-08] MEDS: GABAPENTIN 300 MG CAPSULE PO SCH ×2 (08:56→16:19)
[2021-07-08] MEDS: NICOTINE PATCH (14MG) 14 MG PATCH.TD24 TD SCH (08:57)
[2021-07-08] MEDS: MUPIROCIN OINT 2% 22 GM TUBE NS SCH ×2 (09:21→20:21)
[2021-07-08 11:04] LABS: BASOPHILS # (AUTO) 0.1 K/uL (0.0-0.2); EOSINOPHILS % (AUTO) 7.7 % (0.0-6.0); HEMATOCRIT 42 % (39-51); HEMOGLOBIN 14.5 g/dL (13.5-17.5); LYMPHOCYTES # (AUTO) 1.5 K/uL (0.8-4.8); LYMPHOCYTES % (AUTO) 19.7 % (20.0-44.0); MEAN CORPUSCULAR HGB CONC 35 g/dl (31.0-36.0); MEAN CORPUSCULAR VOLUME 92 fL (80-96); MONOCYTES # (AUTO) 0.6 K/uL (0.1-1.30); MONOCYTES % (AUTO) 7.3 % (2.0-12.0); NEUTROPHILS # (AUTO) 4.9 K/uL (1.8-8.9); NEUTROPHILS % (AUTO) 64.3 % (43.0-81.0); PLATELET COUNT (AUTO) 245 K/uL (150-450); RED BLOOD CELL COUNT(AUTO) 4.59 MIL/uL (4.5-6.0); WHITE BLOOD COUNT (AUTO) 7.6 K/uL (4.3-11.0)
[2021-07-08 11:44] LABS: ALBUMIN 3.4 g/dL (3.4-5.0); BILIRUBIN,TOTAL 0.3 mg/dL (0.2-1.0); CALCIUM, SERUM 8.9 mg/dL (8.5-10.1); CREATININE 1.1 mg/dL (0.6-1.3); POTASSIUM 4.2 mmol/L (3.5-5.1); TOTAL PROTEIN, SERUM 7.1 g/dL (6.4-8.2)
[2021-07-08 16:00] VITALS: BP 115/62
[2021-07-08] MEDS ORDERED: LITHIUM CARBONATE 150 MG CAPSULE PO SCH (17:00)
[2021-07-08] MEDS: ATORVASTATIN 10 MG TABLET PO SCH (17:30)
[2021-07-08] MEDS: ACETAMINOPHEN 325 MG TABLET PO PRN (20:22)
--- NOTE | 2021-07-08 20:28 | NUR ---
Pt c/o lower back pain 07/05. Tylenol 650 mg prn given as ordered. Will continue to monitor.
[2021-07-08 20:41] VITALS: BP 132/72
--- NOTE | 2021-07-08 21:30 | NUR ---
Post 1 hr tylenol 650 mg effective. DE 0/10. Will continue to monitor. Frequent visual check done for safety.
[2021-07-08] MEDS: hydrOXYzine PAMOATE 25 MG CAPSULE PO PRN (22:30)
--- NOTE | 2021-07-08 22:33 | NUR ---
Pt anxious and agitated. Roaming and pacing in hallway. Least restrictive measures ineffecive. Vistaril 25 mg po prn given as ordered. Will continue to monitor.
--- NOTE | 2021-07-08 23:33 | NUR ---
Post 1 hr Vistaril effective. Pt asleep in bed easy to arouse. Will continue to monitor. Frequent visual check done for safety.
[2021-07-09 08:00] VITALS: BP 115/63
[2021-07-09] MEDS: TAMSULOSIN 0.4 MG CAP.SR.24H PO SCH (08:09)
[2021-07-09] MEDS: OLANZAPINE 5 MG TABLET PO SCH ×2 (08:09→20:27)
[2021-07-09] MEDS: APIXABAN 5 MG TABLET PO SCH ×2 (08:09→17:54)
[2021-07-09] MEDS: PANTOPRAZOLE 40 MG TABLET.DR PO SCH (08:09)
[2021-07-09] MEDS: GABAPENTIN 300 MG CAPSULE PO SCH ×2 (08:10→17:53)
[2021-07-09] MEDS: MUPIROCIN OINT 2% 22 GM TUBE NS SCH ×2 (08:10→20:28)
[2021-07-09] MEDS: LITHIUM CARBONATE 150 MG CAPSULE PO SCH ×3 (08:10→20:27)
[2021-07-09] MEDS: NICOTINE PATCH (14MG) 14 MG PATCH.TD24 TD SCH (08:11)
--- NOTE | 2021-07-09 13:09 | NUR ---
THOR Family Contact: SW called pt.'s sister Leena Valdez ([phone]) and left a voicemail. SW wanted to confirm if she lives at a house.
[2021-07-09 16:00] VITALS: BP 105/60
[2021-07-09] MEDS: ATORVASTATIN 10 MG TABLET PO SCH (18:13)
--- NOTE | 2021-07-09 19:25 | NUR ---
GPS RN NOTE RECIEVED PT AWAKE IN BED. NO S/S OR COMPLAINTS AT THIS TIME. NO S/S OF APPARENT DISTRESS AT THIS TIME. PATIENT BREATHING EVEN AND UNLABORED WITH EQUAL RISE AND FALL OF CHEST. PT IS A/O X3. PT IS COMPLIANT WITH MEDICATION, DISORGANIZED, ANXIOUS, AND COOPERATIVE. PT DENIES SI AND HI AT THIS TIME. PT AMBULATORY AND STEADY GAIT. PT HAS NO NEEDS AT THIS TIME. PT EDUCATED ON USE OF CALL LIGHT. PT BED RAILS UP X2 FOR SAFETY. BED IS LOCKED AND LOW. WILL CONTINUE TO MONITOR Q15 MIN WITH THE HELP OF STAFF TO MAINTAIN SAFETY.
[2021-07-09 20:00] VITALS: BP 135/66
[2021-07-10 08:00] VITALS: BP 106/66
[2021-07-10] MEDS: GABAPENTIN 300 MG CAPSULE PO SCH ×2 (08:23→17:01)
[2021-07-10] MEDS: PANTOPRAZOLE 40 MG TABLET.DR PO SCH (08:23)
[2021-07-10] MEDS: LITHIUM CARBONATE 150 MG CAPSULE PO SCH ×4 (08:23→21:00)
[2021-07-10] MEDS: TAMSULOSIN 0.4 MG CAP.SR.24H PO SCH (08:23)
[2021-07-10] MEDS: OLANZAPINE 5 MG TABLET PO SCH ×2 (08:23→21:00)
[2021-07-10] MEDS: APIXABAN 5 MG TABLET PO SCH ×2 (08:25→17:02)
[2021-07-10] MEDS: MUPIROCIN OINT 2% 22 GM TUBE NS SCH ×2 (08:26→21:04)
[2021-07-10] MEDS: NICOTINE PATCH (14MG) 14 MG PATCH.TD24 TD SCH (08:29)
[2021-07-10] MEDS: MAGNESIUM HYDROXIDE 30 ML UDC PO PRN (10:10)
[2021-07-10] MEDS: ACETAMINOPHEN 325 MG TABLET PO PRN (12:22)
[2021-07-10 16:00] VITALS: BP 109/63
[2021-07-10] MEDS: ATORVASTATIN 10 MG TABLET PO SCH (17:40)
[2021-07-10 20:00] VITALS: BP 102/56
[2021-07-10] MEDS: hydrOXYzine PAMOATE 25 MG CAPSULE PO PRN (21:51)
[2021-07-11 08:00] VITALS: BP 105/80
[2021-07-11] MEDS: PANTOPRAZOLE 40 MG TABLET.DR PO SCH (08:07)
[2021-07-11] MEDS: TAMSULOSIN 0.4 MG CAP.SR.24H PO SCH (09:02)
[2021-07-11] MEDS: LITHIUM CARBONATE 150 MG CAPSULE PO SCH ×4 (09:02→21:51)
[2021-07-11] MEDS: GABAPENTIN 300 MG CAPSULE PO SCH ×2 (09:03→16:25)
[2021-07-11] MEDS: NICOTINE PATCH (14MG) 14 MG PATCH.TD24 TD SCH (09:03)
[2021-07-11] MEDS: OLANZAPINE 5 MG TABLET PO SCH ×2 (09:03→21:50)
[2021-07-11] MEDS: APIXABAN 5 MG TABLET PO SCH ×2 (09:04→16:27)
[2021-07-11] MEDS: MUPIROCIN OINT 2% 22 GM TUBE NS SCH ×2 (09:28→21:49)
[2021-07-11] MEDS: hydrOXYzine PAMOATE 25 MG CAPSULE PO PRN (12:09)
[2021-07-11 16:00] VITALS: BP 140/73
[2021-07-11] MEDS: ACETAMINOPHEN 325 MG TABLET PO PRN ×2 (16:41→21:51)
[2021-07-11] MEDS: ATORVASTATIN 10 MG TABLET PO SCH (17:04)
[2021-07-11 20:00] VITALS: BP 132/65
[2021-07-11] MEDS: ALBUTEROL SULFATE 8 GM HFA.AER.AD IH PRN (20:22)
[2021-07-11] MEDS: MAGNESIUM HYDROXIDE 30 ML UDC PO PRN (22:56)
--- NOTE | 2021-07-12 04:38 | NUR ---
Patient alert and orientated x3. moves about the unit fast nervous gait steady. drawing pictures and wanting to talk about them with the nurse. One picture of a house with trees and bushes. 2nd picture he estevan a dream catcher. He talks in a rapid manner. Talks about himself and daughter and his life, mostly a postive conversation. Excesive eating and wanting nurishments
[2021-07-12 08:00] VITALS: BP 127/71
[2021-07-12] MEDS: PANTOPRAZOLE 40 MG TABLET.DR PO SCH (08:21)
[2021-07-12] MEDS: TAMSULOSIN 0.4 MG CAP.SR.24H PO SCH (08:33)
[2021-07-12] MEDS: GABAPENTIN 300 MG CAPSULE PO SCH ×3 (08:33→16:32)
[2021-07-12] MEDS: OLANZAPINE 5 MG TABLET PO SCH ×2 (08:33→21:51)
[2021-07-12] MEDS: LITHIUM CARBONATE 150 MG CAPSULE PO SCH ×4 (08:33→21:51)
[2021-07-12] MEDS: NICOTINE PATCH (14MG) 14 MG PATCH.TD24 TD SCH ×2 (08:35→08:42)
[2021-07-12] MEDS: MUPIROCIN OINT 2% 22 GM TUBE NS SCH ×2 (08:35→21:53)
[2021-07-12] MEDS: APIXABAN 5 MG TABLET PO SCH ×2 (08:38→16:34)
--- NOTE | 2021-07-12 10:00 | NUR ---
RN NOTE PT IS VERY AGGRESSIVE, COMBATIVE;YELLING AND SCREAMING UP AND DOWN THE HALLWAY. ADMINISTERED VISTIRIL PRN. PT COMPLIED WITH MEDICATION. WILL MONITOR PT.
[2021-07-12] MEDS: hydrOXYzine PAMOATE 25 MG CAPSULE PO PRN (10:12)
--- NOTE | 2021-07-12 10:23 | NUR ---
RN-NOTES NOTED PATIENT VERBALLY ABUSIVE,PACING AND THREATENING SW WITH HIS RIGHT FIST. DR. THORPE IN THE UNIT WITH VERBAL ORDER OF ZYPREXA 10MG IM ONCE. NOTED AND CARRIED OUT.
[2021-07-12] MEDS ORDERED: OLANZAPINE 10 MG VIAL IM ONE (10:30)
[2021-07-12 16:00] VITALS: BP 137/76
[2021-07-12] MEDS: ACETAMINOPHEN 325 MG TABLET PO PRN (16:32)
[2021-07-12] MEDS: ATORVASTATIN 10 MG TABLET PO SCH (17:12)
[2021-07-12 20:00] VITALS: BP 91/61
--- NOTE | 2021-07-13 06:39 | NUR ---
GPS RN CLOSING NOTES: PATIENT IS CURRENTLY IN BED SLEEPING. PATIENT SLEPT 10HR THIS SHIFT. NO S/S OF DISTRESS. RESPIRATION EVEN AND UNLABORED WITH EQUAL RISE AND FALL OF THE CHEST, ON ROOM AIR. ALL PATIENT CARE NEEDS HAVE BEEN MET AT THIS TIME. WILL CONTINUE TO MONITOR AND ENDORSE TO AM SHIFT.
[2021-07-13 08:00] VITALS: BP 113/71
[2021-07-13] MEDS: OLANZAPINE 5 MG TABLET PO SCH ×2 (08:24→21:16)
[2021-07-13] MEDS: LITHIUM CARBONATE 150 MG CAPSULE PO SCH ×4 (08:24→21:17)
[2021-07-13] MEDS: PANTOPRAZOLE 40 MG TABLET.DR PO SCH (08:25)
[2021-07-13] MEDS: TAMSULOSIN 0.4 MG CAP.SR.24H PO SCH (08:25)
[2021-07-13] MEDS: NICOTINE PATCH (14MG) 14 MG PATCH.TD24 TD SCH (08:26)
[2021-07-13] MEDS: GABAPENTIN 300 MG CAPSULE PO SCH ×3 (08:26→16:36)
[2021-07-13] MEDS: APIXABAN 5 MG TABLET PO SCH ×2 (08:28→17:13)
[2021-07-13] MEDS: MUPIROCIN OINT 2% 22 GM TUBE NS SCH ×2 (09:22→21:00)
--- NOTE | 2021-07-13 11:28 | NUR ---
THOR Individual Therapy: SW attempted to conduct therapy. Pt appeared to be calm and cooperative. He expressed to this marketing copywriter that he has "anger problems". He reported that it is "difficult for him to handle his anger". SW actively listened and helped pt with coping skills for his anger.
[2021-07-13 16:00] VITALS: BP 123/63
[2021-07-13] MEDS: ATORVASTATIN 10 MG TABLET PO SCH (17:13)
[2021-07-13 20:32] VITALS: BP 120/71
--- NOTE | 2021-07-13 21:24 | NUR ---
GPS RN NOTES: PATIENT REFUSED 2100 BACTROBAN OINT FOR BOTH NARES.
[2021-07-14] MEDS: PANTOPRAZOLE 40 MG TABLET.DR PO SCH (07:57)
[2021-07-14 08:00] VITALS: BP 100/60
[2021-07-14] MEDS: TAMSULOSIN 0.4 MG CAP.SR.24H PO SCH (08:08)
[2021-07-14] MEDS: LITHIUM CARBONATE 150 MG CAPSULE PO SCH ×4 (08:08→20:52)
[2021-07-14] MEDS: GABAPENTIN 300 MG CAPSULE PO SCH ×3 (08:08→16:24)
[2021-07-14] MEDS: OLANZAPINE 5 MG TABLET PO SCH ×2 (08:08→20:52)
[2021-07-14] MEDS: NICOTINE PATCH (14MG) 14 MG PATCH.TD24 TD SCH (09:00)
[2021-07-14] MEDS: MUPIROCIN OINT 2% 22 GM TUBE NS SCH ×2 (09:04→21:00)
[2021-07-14] MEDS: APIXABAN 5 MG TABLET PO SCH ×2 (09:10→16:25)
[2021-07-14 16:00] VITALS: BP 122/72
[2021-07-14] MEDS: ATORVASTATIN 10 MG TABLET PO SCH (17:39)
[2021-07-14 19:50] VITALS: BP 119/62
--- NOTE | 2021-07-14 21:05 | NUR ---
GPS RN NOTES: PATIENT REFUSED 2100 BACTROBAN OINT FOR BOTH NARES.
[2021-07-14] MEDS: hydrOXYzine PAMOATE 25 MG CAPSULE PO PRN (22:13)
--- NOTE | 2021-07-14 22:14 | NUR ---
GPS RN NOTES: PATIENT C/O ANXIETY. VISTARIL 25MG GIVEN PO AT 2213. WILL CONTINUE TO MONITOR.
--- NOTE | 2021-07-15 02:29 | NUR ---
GPS RN NOTES: Patient c/o indigestion. Maalox 30ml/1cup given po at 0226. Will continue to monitor.
[2021-07-15 08:00] VITALS: BP 107/70
[2021-07-15] MEDS: PANTOPRAZOLE 40 MG TABLET.DR PO SCH (08:15)
[2021-07-15] MEDS: LITHIUM CARBONATE 150 MG CAPSULE PO SCH ×4 (08:27→20:57)
[2021-07-15] MEDS: OLANZAPINE 5 MG TABLET PO SCH ×2 (08:27→20:58)
[2021-07-15] MEDS: GABAPENTIN 300 MG CAPSULE PO SCH ×3 (08:27→16:37)
[2021-07-15] MEDS: NICOTINE PATCH (14MG) 14 MG PATCH.TD24 TD SCH (08:27)
[2021-07-15] MEDS: hydrOXYzine PAMOATE 25 MG CAPSULE PO PRN (08:28)
[2021-07-15] MEDS: TAMSULOSIN 0.4 MG CAP.SR.24H PO SCH (08:28)
[2021-07-15] MEDS: APIXABAN 5 MG TABLET PO SCH ×2 (08:30→16:37)
[2021-07-15] MEDS: MUPIROCIN OINT 2% 22 GM TUBE NS SCH (08:39)
[2021-07-15] MEDS: ALBUTEROL SULFATE 8 GM HFA.AER.AD IH PRN (08:45)
[2021-07-15] MEDS: ACETAMINOPHEN 325 MG TABLET PO PRN (12:44)
--- NOTE | 2021-07-15 12:45 | NUR ---
RN-CO: TYLENOL 650 MG PO GIVEN FOR KNEE PAIN 08/05.
[2021-07-15 16:00] VITALS: BP 107/65
[2021-07-15] MEDS: ATORVASTATIN 10 MG TABLET PO SCH (17:13)
[2021-07-15 20:00] VITALS: BP 109/67
[2021-07-16] MEDS: PANTOPRAZOLE 40 MG TABLET.DR PO SCH (06:48)
--- NOTE | 2021-07-16 07:30 | NUR ---
Received patient up in hallway, no S/S of distress noted. Cooperative, focus on discharge this morning. Will continue to monitor.
[2021-07-16 08:00] VITALS: BP 118/65
[2021-07-16] MEDS: NICOTINE PATCH (14MG) 14 MG PATCH.TD24 TD SCH (09:00)
[2021-07-16] MEDS: LITHIUM CARBONATE 150 MG CAPSULE PO SCH ×4 (09:28→21:17)
[2021-07-16] MEDS: TAMSULOSIN 0.4 MG CAP.SR.24H PO SCH (09:28)
[2021-07-16] MEDS: OLANZAPINE 5 MG TABLET PO SCH ×2 (09:28→21:17)
[2021-07-16] MEDS: APIXABAN 5 MG TABLET PO SCH ×2 (09:30→16:33)
[2021-07-16] MEDS: GABAPENTIN 300 MG CAPSULE PO SCH ×3 (09:31→16:32)
[2021-07-16] MEDS: ACETAMINOPHEN 325 MG TABLET PO PRN (12:45)
--- NOTE | 2021-07-16 12:54 | NUR ---
Patient complane of pain 3/10, PRN Tylenol given as ordered. Will continue to monitor.
--- NOTE | 2021-07-16 15:39 | NUR ---
THOR Individual Therapy: SW met with patient at bedside for individual therapy regarding positive coping mechanisms. SW explored pt.'s current coping mechanism and provided psychoeducation. Patient stated that the current coping mechanism he uses when he becomes angry is prayer.Patient has insight into existing problem stating that he's been diagnosed with PTSD and becomes angry at times. SW used active listening and educated him on alternate coping mechanisms. Patient stated he will try to use positive affirmations to remind himself that people are for him and not against him. Patient states his current mood is "happy". Pt. remained calm & cooperative and participated in group.
[2021-07-16 16:00] VITALS: BP 107/66
[2021-07-16] MEDS: ATORVASTATIN 10 MG TABLET PO SCH (17:30)
[2021-07-16 19:49] VITALS: BP 114/56
--- NOTE | 2021-07-17 06:37 | NUR ---
RN NOTES: COLLECT COVID ANTIGEN TEST AND SEND OUT THE LAB.
[2021-07-17] MEDS: PANTOPRAZOLE 40 MG TABLET.DR PO SCH (07:30)
[2021-07-17 08:00] VITALS: BP 118/70
--- NOTE | 2021-07-17 08:10 | NUR ---
SW Discharge Note: Patient will be discharged to residential facility to [facility] [address] [place] [address]; ([phone]). Please arrange ambulance transportation at 1PM. Crop Research Scientist spoke with Milli, Cytogeneticist at [facility] ([phone]) who stated patient will be accepted at facility today. Patient is alert and oriented x2 and is not able to plan for self-care at this time but is willing to accept care provided by the facility. Patient denies any suicidal or homicidal ideations. Patient is aware and agreeable with discharge plans. Patients sister Leena ([phone]) is aware and agreeable with dc. Patient will continue to follow-up with (psychiatrist) Dr. Payne [address] [facility] [address], [place] [address]; ([phone]) and (gag writer) Dr. Platt [address] [facility] [address], [place] [address]; ([phone]). Patient was given referrals: [facility] ([phone]), [facility] ([phone]), and [facility] ([phone]) for alcohol abuse and smoking marijuana. Patient signed the homeless waiver upon discharge and a copy was placed in the chart. Homeless resources were provided and include [address] information line for shelters and homeless resources. A copy of all resources given to patient was also placed in the chart. Patient presents with euthymic mood and congruent affect.
[2021-07-17] MEDS: LITHIUM CARBONATE 150 MG CAPSULE PO SCH ×2 (09:15→13:00)
[2021-07-17] MEDS: TAMSULOSIN 0.4 MG CAP.SR.24H PO SCH (09:15)
[2021-07-17] MEDS: GABAPENTIN 300 MG CAPSULE PO SCH ×2 (09:15→13:00)
[2021-07-17] MEDS: OLANZAPINE 5 MG TABLET PO SCH (09:15)
[2021-07-17] MEDS: NICOTINE PATCH (14MG) 14 MG PATCH.TD24 TD SCH (09:17)
[2021-07-17] MEDS: APIXABAN 5 MG TABLET PO SCH (09:17)
[2021-07-17] MEDS: ACETAMINOPHEN 325 MG TABLET PO PRN (09:57)
--- NOTE | 2021-07-17 09:57 | NUR ---
PATIENT C/O knee PAIN MEDICATED WITH TYLENOL 650MG X1 WILL CONTINUE TO MONITOR .
--- NOTE | 2021-07-17 13:54 | NUR ---
Assembler Musical Instruments: SW received a call from pt's security public safety officer Angelica ([phone]) and wanted update on pt and where pt will be going. SW shared information.
--- NOTE | 2021-07-17 14:45 | NUR ---
Patient discharged to [facility] in stable condition.Compliant with medications ,cooperative with treatment plans Patient denies SI/HI/AVH .Behavior improved ,psychiatric tx plans met ,medical tx plans differed for for continual monitoring .Educated pt about after care plan (Exit -care)and copy provided .Returned personal belongings to patient med list given and explained to patient able to verbalize understanding, report given to Amber RN in facility .Vs stable ,no c/o pain .Patient seen by Dr. Burton and Dr. Platt with discharge orders .Patient refused discharge photo .Patient discharge at 1445 with ambulance.
== END 2021-07-17 14:45 | DRG 885 ==
LOC: GPS 18:24
PROVIDERS: ADMIT Psychiatry & Neurology Psychiatry; ATTEND Internal Medicine
DX: F31.5 Bipolar disorder, current episode depressed, severe, with psychotic features (principal); R45.851 Suicidal ideations; F10.10 Alcohol abuse, uncomplicated; Z59.00 Homelessness unspecified; F15.10 Other stimulant abuse, uncomplicated; F12.10 Cannabis abuse, uncomplicated; Z86.73 Personal history of transient ischemic attack (TIA), and cerebral infarction without residual deficits; Y90.9 Presence of alcohol in blood, level not specified
CPT/HCPCS: 36415; 80048-TC; 80053-TC; 80061-TC; 82962-TC; 84439-TC; 84443-TC; 84481; 85025-TC; 87081-TC; 97116-TC; 97530-TC; J3490; Q0163; Q0177

== ENCOUNTER 2021-07-30 15:50 | Inpatient (IN) | payer MEDICARE, OTHER ==
[~2021-07-30] VITALS: Ht 170.2 cm; Wt 74.8 kg
[~2021-07-30 15:50] MED LIST: ALBU8.5H8 INH; APIX5TAB PO; ATOR10TA PO; GABA300C PO; LOSA50TA3 PO; PANT20TA2 PO; TAMS-12 PO
--- NOTE | 2021-07-30 15:50 | NUR ---
PT BIB SELF C/O SI "I WANT TO JUMP IN FRONT OF THE CAR." REQUESTING VOLUNTARY PSYCH ADMISSION, PT IS AAOX4, NOT IN RESPIRATORY DISTRESS, V/S STABLE, KEPT RESTED AND COMFORTABLE. WILL CONTINUE TO MONITOR.
--- NOTE | 2021-07-30 16:21 | NUR ---
URINE SPECIMEN COLLECTED AND SENT TO LAB.
[2021-07-30 17:06] LABS: BILIRUBIN,URINE NEGATIVE (NEGATIVE); COLOR,URINE YELLOW (YELLOW); LEUKOCYTE ESTERASE ,URINE NEGATIVE (NEGATIVE); NITRITE, URINE NEGATIVE (NEGATIVE); PH,URINE 5.5 (5.0-8.0); PROTEIN,URINE NEGATIVE (NEGATIVE); UGLUCOSE NEGATIVE (NEGATIVE); UROBILINOGEN,URINE 0.2 EU/dL (0.2)
[2021-07-30 17:21] LABS: BASOPHILS # (AUTO) 0.1 K/uL (0.0-0.2); BASOPHILS % (AUTO) 0.4 % (0.0-2.0); EOSINOPHILS % (AUTO) 1.1 % (0.0-6.0); HEMATOCRIT 42 % (39-51); LYMPHOCYTES % (AUTO) 7.9 % (20.0-44.0); MEAN CORPUSCULAR HGB CONC 34 g/dl (31.0-36.0); MEAN CORPUSCULAR VOLUME 93 fL (80-96); MONOCYTES # (AUTO) 0.8 K/uL (0.1-1.30); MONOCYTES % (AUTO) 5.9 % (2.0-12.0); NEUTROPHILS # (AUTO) 10.9 K/uL (1.8-8.9); NEUTROPHILS % (AUTO) 84.7 % (43.0-81.0); PLATELET COUNT (AUTO) 234 K/uL (150-450); RED BLOOD CELL COUNT(AUTO) 4.49 MIL/uL (4.5-6.0); WHITE BLOOD COUNT (AUTO) 12.9 K/uL (4.3-11.0)
[2021-07-30 17:54] LABS: ALCOHOL, BLOOD < 3 mg/dL (0-0); ALKALINE PHOSPHATASE 69 U/L (46-116); BILIRUBIN,DIRECT 0.1 mg/dL (0.0-0.2); BILIRUBIN,TOTAL 0.3 mg/dL (0.2-1.0); CARBON DIOXIDE 24 mmol/L (21-32); CHLORIDE 99 mmol/L (98-107); CREATININE 1.2 mg/dL (0.6-1.3); GLUCOSE 135 mg/dL (74-106); SODIUM SERUM 134 mmol/L (136-145); UREA NITROGEN, BLOOD 22 mg/dL (7-18)
[2021-07-30 17:58] LABS: ALANINE AMINOTRANSFERASE 15 U/L (12-78); ALBUMIN 3.6 g/dL (3.4-5.0); ASPARTATE AMINOTRANSFERASE 15 U/L (15-37); CALCIUM, SERUM 8.9 mg/dL (8.5-10.1); POTASSIUM 3.9 mmol/L (3.5-5.1); TOTAL PROTEIN, SERUM 7.4 g/dL (6.4-8.2)
--- NOTE | 2021-07-30 18:22 | NUR ---
COVID SPECIMEN COLLECTED AND SENT TO LAB.
[2021-07-30] MEDS ORDERED: OLAN15TA3 PO (18:29)
[2021-07-30] MEDS ORDERED: LITH300T3 PO (18:29)
[2021-07-30 20:48] LABS: ACETAMINOPHEN 0 ug/ml (10-30)
--- NOTE | 2021-07-30 22:25 | NUR ---
REPORT TYLER TO RN AT GPS
[2021-07-30] MEDS ORDERED: BLOOD SUGAR DIAGNOSTIC 1 EACH STRIP IN ONE (23:30)
[2021-07-30] MEDS ORDERED: MAGNESIUM HYDROXIDE 30 ML UDC PO PRN (23:30)
[2021-07-30] MEDS ORDERED: MAG HYDROX/AL HYDROX/SIMETH 30 ML UDC PO PRN (23:30)
--- NOTE | 2021-07-30 23:38 | NUR ---
TRANSFERRED TO [facility] IN STABLE CONDITION
[2021-07-31] MEDS ORDERED: ALBUTEROL SULFATE 8 GM HFA.AER.AD IH PRN
--- NOTE | 2021-07-31 00:39 | NUR ---
GPS ADMISSION RN NOTE: RECEIVED HOMELESS PATIENT WITH ARRIVAL TIME TO THE UNIT AT 2315 VIA WHEELCHAIR BY 1 ER STAFF. PATIENT ADMITTED ON A 5150 HOLD FOR DANGER TO SELF AND GRAVELY DISABLED FOR SUICIDAL IDEATION WITH PLAN TO RUN IN FRONT OF CAR. RESPIRATIONS EVEN AND UNLABORED WITH NO SOB NOTED. PATIENT SEEMS TO BE ALERT ORIENTED X3. PATIENT CURRENTLY DENIES ANY SUICIDAL IDEATION DESPITE SAYING HE DID HAD SOME INTENTIONS, BUT NO LONGER HAVE THOSE THOUGHTS. PATIENT ALSO DENIES ANY HOMICIDAL IDEATION AT THIS TIME. PATIENT ADVISED OF HOLD AND PATIENT'S RIGHT BOOK GIVEN. PATIENT BELONGINGS CHECKED FOR CONTRABAND, WHICH WERE STORED IN LOCKER. SKIN ASSESSMENT COMPLETED, WHICH APPEARS TO BE INTACT. PATIENT HAS BEEN VACCINATED WITH THE TRISTON & TRISTON VACCINE THAT WAS GIVEN IN 2020. AFTERWARDS, PATIENT ORIENTED TO UNIT, ROOM, AND SLEPT FOR THE REMAINDER OF THE NIGHT. PATIENT EDUCATED ON THE USE OF THE CALL CHAMBERLAIN. SIDE RAILS UP X2. BED LOCKED IN LOW POSITION. WILL CONTINUE TO MONITOR Q15 MINUTES FOR SAFETY.
[2021-07-31 08:00] VITALS: BP 116/62
[2021-07-31] MEDS: PANTOPRAZOLE 40 MG/PACK PACK PO SCH (08:09)
[2021-07-31] MEDS: LOSARTAN POTASSIUM 50 MG TABLET PO SCH (08:16)
[2021-07-31] MEDS: GABAPENTIN 300 MG CAPSULE PO SCH ×2 (08:16→17:19)
[2021-07-31] MEDS: TAMSULOSIN 0.4 MG CAP.SR.24H PO SCH (08:16)
[2021-07-31] MEDS: APIXABAN 5 MG TABLET PO SCH ×2 (08:17→17:20)
[2021-07-31 08:18] LABS: ALBUMIN 3.2 g/dL (3.4-5.0); BILIRUBIN,TOTAL 0.3 mg/dL (0.2-1.0); CALCIUM, SERUM 9.1 mg/dL (8.5-10.1); CREATININE 1.1 mg/dL (0.6-1.3); POTASSIUM 4.1 mmol/L (3.5-5.1); TOTAL PROTEIN, SERUM 6.9 g/dL (6.4-8.2)
[2021-07-31 09:10] LABS: CHOLESTEROL 189 mg/dL (<200); HDL CHOLESTEROL 30 mg/dL (40-60); TRIGLYCERIDES 285 mg/dL (30-150)
[2021-07-31 09:27] LABS: LDL 99 mg/dL (0-99)
[2021-07-31] MEDS: LITHIUM CARBONATE (300 MG CAP) 300 MG CAPSULE PO SCH ×2 (10:34→21:00)
--- NOTE | 2021-07-31 13:14 | NUR ---
THOR Initial Discharge Plan: Patient was discharged to [facility] [address] [place] [address]; ([phone]) and had left AMA. THOR spoke with Kerline whitlock ([phone]) who stated that pt is welcomed back upon dc. Patient would want to return back to [facility]. THOR will discuss with pt, family, and treatment plan to coordinate appropriate discharge.
--- NOTE | 2021-07-31 13:14 | NUR ---
SW Admit Source: Patient placed on a hold for danger to self and GD. Patient had suicidal plan that wanted to jump off a bridge. Patient was discharged to [address] [address]; ([phone]) and had left AMA. THOR spoke with Kerline whitlock ([phone]) who stated pt is welcomed back. Patient would want to return back to [facility].
--- NOTE | 2021-07-31 13:23 | NUR ---
Social Work Note/Substance Abuse Intervention: Patient was provided with a brief substance abuse intervention and referred to [facility] ([phone]), [facility] ([phone]), and [facility] ([phone]) for drinking alcohol.
[2021-07-31] MEDS: ACETAMINOPHEN 325 MG TABLET PO PRN (14:00)
[2021-07-31 16:00] VITALS: BP 137/56
[2021-07-31] MEDS: ATORVASTATIN 10 MG TABLET PO SCH (17:19)
[2021-07-31] MEDS: OLANZAPINE 10 MG TABLET PO SCH (17:19)
[2021-07-31] MEDS: hydrOXYzine PAMOATE 25 MG CAPSULE PO PRN (19:40)
[2021-07-31 19:53] VITALS: BP 145/68
[2021-07-31 19:58] VITALS: BP 145/68
[2021-07-31] MEDS: ALBUTEROL FS 2.5 MG/3 ML VIAL.NEB NEB PRN (21:10)
--- NOTE | 2021-08-01 04:56 | NUR ---
alert and orientated x4 walks the halls in a rapid/fast motion steady on his legs refused the ordered LITHIUM last night...stated "makes his head fill full" calm cooperative stated he is Satan and related to God comment" liquior and drugs will burn you inside " "they are like fire" slept in his bed thru the night soundly when he is awake he will talk ALOT ans tll stories about him eloy part part danish on and on talks about his uncles and he grewup BiSexual but now he is straight
[2021-08-01 08:00] VITALS: BP 139/87
[2021-08-01] MEDS: LOSARTAN POTASSIUM 50 MG TABLET PO SCH (09:00)
[2021-08-01] MEDS: LITHIUM CARBONATE (300 MG CAP) 300 MG CAPSULE PO SCH (09:00)
[2021-08-01] MEDS: TAMSULOSIN 0.4 MG CAP.SR.24H PO SCH (10:29)
[2021-08-01] MEDS: PANTOPRAZOLE 40 MG/PACK PACK PO SCH (10:29)
[2021-08-01] MEDS: GABAPENTIN 300 MG CAPSULE PO SCH ×2 (10:29→17:53)
[2021-08-01] MEDS: OLANZAPINE 10 MG TABLET PO SCH ×2 (10:29→17:53)
[2021-08-01] MEDS: APIXABAN 5 MG TABLET PO SCH ×2 (10:31→17:54)
--- NOTE | 2021-08-01 15:30 | NUR ---
Individual Counseling: SW met with pt. at bedside to complete individual therapy about positive coping mechanisms. Pt. is alert & oriented and appeared depressed with distressed affect. Pt. stated, " I don't really feel like talking right now". SW respected patient self determination. SW will continue to monitor patient's ability to participate in therapy.
[2021-08-01 16:00] VITALS: BP 100/58
[2021-08-01] MEDS: ALBUTEROL FS 2.5 MG/3 ML VIAL.NEB NEB PRN (16:53)
[2021-08-01] MEDS: ATORVASTATIN 10 MG TABLET PO SCH (17:52)
[2021-08-01] MEDS: CARBAMAZEPINE 200 MG TABLET PO SCH (17:53)
--- NOTE | 2021-08-01 18:30 | NUR ---
c/o sob late afternoon and had breathing tx.
[2021-08-01 20:00] VITALS: BP 113/56
[2021-08-02 08:00] VITALS: BP 105/60
[2021-08-02] MEDS: GABAPENTIN 300 MG CAPSULE PO SCH ×2 (08:31→16:58)
[2021-08-02] MEDS: LOSARTAN POTASSIUM 50 MG TABLET PO SCH (08:35)
[2021-08-02] MEDS: OLANZAPINE 10 MG TABLET PO SCH ×2 (08:36→16:58)
[2021-08-02] MEDS: TAMSULOSIN 0.4 MG CAP.SR.24H PO SCH (08:36)
[2021-08-02] MEDS: CARBAMAZEPINE 200 MG TABLET PO SCH ×2 (08:36→16:58)
[2021-08-02] MEDS: APIXABAN 5 MG TABLET PO SCH ×2 (08:38→17:01)
[2021-08-02] MEDS: PANTOPRAZOLE 40 MG TABLET.DR PO SCH (08:42)
[2021-08-02 16:00] VITALS: BP 112/65
[2021-08-02] MEDS: ATORVASTATIN 10 MG TABLET PO SCH (18:32)
[2021-08-02] MEDS: ALBUTEROL FS 2.5 MG/3 ML VIAL.NEB NEB PRN (19:13)
[2021-08-02 20:00] VITALS: BP 111/52
[2021-08-03] MEDS: ACETAMINOPHEN 325 MG TABLET PO PRN (00:18)
[2021-08-03 08:00] VITALS: BP 136/73
[2021-08-03] MEDS: ENSURE ENLIVE CHOC 237 ML CAN PO SCH ×2 (08:41→17:09)
[2021-08-03] MEDS: CARBAMAZEPINE 200 MG TABLET PO SCH ×2 (08:44→17:13)
[2021-08-03] MEDS: TAMSULOSIN 0.4 MG CAP.SR.24H PO SCH (08:44)
[2021-08-03] MEDS: GABAPENTIN 300 MG CAPSULE PO SCH ×2 (08:44→17:13)
[2021-08-03] MEDS: LOSARTAN POTASSIUM 50 MG TABLET PO SCH (08:44)
[2021-08-03] MEDS: PANTOPRAZOLE 40 MG TABLET.DR PO SCH (08:44)
[2021-08-03] MEDS: OLANZAPINE 10 MG TABLET PO SCH ×2 (08:44→17:13)
[2021-08-03] MEDS: APIXABAN 5 MG TABLET PO SCH ×2 (08:46→17:12)
[2021-08-03 16:00] VITALS: BP 97/64
[2021-08-03] MEDS: ATORVASTATIN 10 MG TABLET PO SCH (17:13)
[2021-08-03 20:00] VITALS: BP 105/62
[2021-08-04 08:00] VITALS: BP 126/74
[2021-08-04] MEDS: APIXABAN 5 MG TABLET PO SCH ×2 (08:06→16:16)
[2021-08-04] MEDS: TAMSULOSIN 0.4 MG CAP.SR.24H PO SCH (08:07)
[2021-08-04] MEDS: OLANZAPINE 10 MG TABLET PO SCH ×2 (08:07→16:41)
[2021-08-04] MEDS: LOSARTAN POTASSIUM 50 MG TABLET PO SCH (08:07)
[2021-08-04] MEDS: CARBAMAZEPINE 200 MG TABLET PO SCH ×2 (08:07→16:41)
[2021-08-04] MEDS: PANTOPRAZOLE 40 MG TABLET.DR PO SCH (08:07)
[2021-08-04] MEDS: GABAPENTIN 300 MG CAPSULE PO SCH ×2 (08:07→16:41)
[2021-08-04] MEDS: ENSURE ENLIVE CHOC 237 ML CAN PO SCH ×2 (08:07→16:40)
[2021-08-04 16:00] VITALS: BP 130/72
[2021-08-04] MEDS: ATORVASTATIN 10 MG TABLET PO SCH (16:41)
[2021-08-04 20:00] VITALS: BP 135/86
[2021-08-05 08:00] VITALS: BP 123/81
[2021-08-05] MEDS: GABAPENTIN 300 MG CAPSULE PO SCH ×2 (08:04→17:34)
[2021-08-05] MEDS: CARBAMAZEPINE 200 MG TABLET PO SCH ×2 (08:05→17:34)
[2021-08-05] MEDS: APIXABAN 5 MG TABLET PO SCH ×2 (08:05→17:34)
[2021-08-05] MEDS: OLANZAPINE 10 MG TABLET PO SCH ×2 (08:05→17:34)
[2021-08-05] MEDS: PANTOPRAZOLE 40 MG TABLET.DR PO SCH (08:06)
[2021-08-05] MEDS: LOSARTAN POTASSIUM 50 MG TABLET PO SCH (08:06)
[2021-08-05] MEDS: ENSURE ENLIVE CHOC 237 ML CAN PO SCH ×2 (08:06→17:32)
[2021-08-05] MEDS: TAMSULOSIN 0.4 MG CAP.SR.24H PO SCH (08:25)
[2021-08-05] MEDS: ALBUTEROL FS 2.5 MG/3 ML VIAL.NEB NEB PRN (13:08)
[2021-08-05] MEDS ORDERED: CARBAMAZEPINE 100 MG TAB.CHEW PO SCH (13:30)
[2021-08-05] MEDS: CARBAMAZEPINE 100 MG TAB.CHEW PO SCH (15:40)
[2021-08-05] MEDS: ACETAMINOPHEN 325 MG TABLET PO PRN ×2 (15:41→23:19)
[2021-08-05 16:00] VITALS: BP 116/66
[2021-08-05] MEDS: ATORVASTATIN 10 MG TABLET PO SCH (17:35)
[2021-08-05] MEDS: hydrOXYzine PAMOATE 25 MG CAPSULE PO PRN (19:43)
--- NOTE | 2021-08-05 19:47 | NUR ---
GPS RN NOTE: ANXIETY PATIENT C/O FEELING ANXIOUS/RESTLESS AND REQUESTD TO TAKE VISTARIL. PRN VISTARIL 25 MG PO ADMINISTERED.
[2021-08-05 20:28] VITALS: BP 115/74
--- NOTE | 2021-08-05 23:21 | NUR ---
GPS RN NOTE: PAIN PATIENT C/O GENERALIZED BODY PAIN AND REQUESTED TO TAKE TYLENOL. PRN TYLENOL 650 MG PO ADMINISTERED ORDERED.
[2021-08-06 07:06] LABS: BASOPHILS # (AUTO) 0.1 K/uL (0.0-0.2); EOSINOPHILS % (AUTO) 5.8 % (0.0-6.0); HEMATOCRIT 44 % (39-51); HEMOGLOBIN 14.9 g/dL (13.5-17.5); LYMPHOCYTES # (AUTO) 1.6 K/uL (0.8-4.8); MEAN CORPUSCULAR HGB CONC 34 g/dl (31.0-36.0); MEAN CORPUSCULAR VOLUME 90 fL (80-96); MONOCYTES # (AUTO) 0.7 K/uL (0.1-1.30); MONOCYTES % (AUTO) 10.9 % (2.0-12.0); NEUTROPHILS % (AUTO) 58.3 % (43.0-81.0); PLATELET COUNT (AUTO) 221 K/uL (150-450); RED BLOOD CELL COUNT(AUTO) 4.88 MIL/uL (4.5-6.0); WHITE BLOOD COUNT (AUTO) 6.9 K/uL (4.3-11.0)
[2021-08-06 07:58] LABS: ALBUMIN 3.2 g/dL (3.4-5.0); BILIRUBIN,TOTAL 0.2 mg/dL (0.2-1.0); CALCIUM, SERUM 9.2 mg/dL (8.5-10.1); CREATININE 0.9 mg/dL (0.6-1.3); TOTAL PROTEIN, SERUM 7.3 g/dL (6.4-8.2)
[2021-08-06 08:00] VITALS: BP 122/75
[2021-08-06] MEDS: ENSURE ENLIVE CHOC 237 ML CAN PO SCH ×2 (08:03→16:58)
[2021-08-06] MEDS: GABAPENTIN 300 MG CAPSULE PO SCH ×2 (08:33→17:02)
[2021-08-06] MEDS: OLANZAPINE 10 MG TABLET PO SCH ×2 (08:33→17:02)
[2021-08-06] MEDS: TAMSULOSIN 0.4 MG CAP.SR.24H PO SCH (08:33)
[2021-08-06] MEDS: CARBAMAZEPINE 200 MG TABLET PO SCH ×2 (08:33→17:02)
[2021-08-06] MEDS: PANTOPRAZOLE 40 MG TABLET.DR PO SCH (08:33)
[2021-08-06] MEDS: LOSARTAN POTASSIUM 50 MG TABLET PO SCH (08:34)
[2021-08-06] MEDS: APIXABAN 5 MG TABLET PO SCH ×2 (08:35→17:03)
[2021-08-06 08:54] LABS: CARBAMAZEPINE (TEGRETOL) 7.5 ug/ml (4-11.9)
--- NOTE | 2021-08-06 09:47 | NUR ---
Court Notification: SW contacted pt's sister Leena ([phone]) to notify of pt's [id number] hearing and was unable to leave a voicemail.
--- NOTE | 2021-08-06 09:48 | NUR ---
Court Hearing: Patient's court hearing for [id number] was today and it was upheld for GD.
[2021-08-06] MEDS: CARBAMAZEPINE 100 MG TAB.CHEW PO SCH (14:06)
[2021-08-06] MEDS: ALBUTEROL FS 2.5 MG/3 ML VIAL.NEB NEB PRN (14:17)
[2021-08-06 16:00] VITALS: BP 109/66
[2021-08-06] MEDS: ATORVASTATIN 10 MG TABLET PO SCH (17:02)
[2021-08-06 19:30] VITALS: BP 109/66
--- NOTE | 2021-08-06 19:30 | NUR ---
GPS RN NOTE PATIENT REFUSED VITALS AT THIS TIME DESPITE OF RISKS AND BENEFITS EXPLANATIONS. PATIENT IS UNCOOPERATIVE WITH VITALS AND CONTINUED TO REFUSE.
[2021-08-07 08:43] VITALS: BP 100/67
[2021-08-07] MEDS: CARBAMAZEPINE 200 MG TABLET PO SCH ×2 (08:51→17:12)
[2021-08-07] MEDS: TAMSULOSIN 0.4 MG CAP.SR.24H PO SCH (08:51)
[2021-08-07] MEDS: GABAPENTIN 300 MG CAPSULE PO SCH ×2 (08:52→17:12)
[2021-08-07] MEDS: PANTOPRAZOLE 40 MG TABLET.DR PO SCH (08:52)
[2021-08-07] MEDS: LOSARTAN POTASSIUM 50 MG TABLET PO SCH (08:52)
[2021-08-07] MEDS: OLANZAPINE 10 MG TABLET PO SCH ×2 (08:52→17:12)
[2021-08-07] MEDS: APIXABAN 5 MG TABLET PO SCH ×2 (08:53→17:16)
[2021-08-07] MEDS: ENSURE ENLIVE CHOC 237 ML CAN PO SCH ×2 (08:54→17:12)
[2021-08-07] MEDS: CARBAMAZEPINE 100 MG TAB.CHEW PO SCH (12:14)
--- NOTE | 2021-08-07 13:40 | NUR ---
SNF Contact: SW spoke with Kerline ([phone]) journeyman wireman from [facility]. She reported that the DON cannot accept pt back because he had left A[place]. She stated that pt is accepted at [facility] instead.
--- NOTE | 2021-08-07 13:41 | NUR ---
SW Note: SW spoke with patient and explained the situation for [facility] and that he cannot go back due to him leaving [place]. SW expressed that he is accepted at [facility] and if he would want to go there instead. Pt was agreeing of going to [facility].
[2021-08-07 16:24] VITALS: BP 111/64
[2021-08-07] MEDS: ATORVASTATIN 10 MG TABLET PO SCH (17:12)
[2021-08-07 20:27] VITALS: BP 101/52
--- NOTE | 2021-08-08 06:29 | NUR ---
Pt refused lab draw for Tegretol level
[2021-08-08 08:00] VITALS: BP 112/70
[2021-08-08] MEDS: ENSURE ENLIVE CHOC 237 ML CAN PO SCH ×2 (08:28→17:07)
[2021-08-08] MEDS: PANTOPRAZOLE 40 MG TABLET.DR PO SCH (08:28)
[2021-08-08] MEDS: OLANZAPINE 10 MG TABLET PO SCH ×2 (09:41→17:07)
[2021-08-08] MEDS: TAMSULOSIN 0.4 MG CAP.SR.24H PO SCH (09:41)
[2021-08-08] MEDS: CARBAMAZEPINE 200 MG TABLET PO SCH ×2 (09:41→17:07)
[2021-08-08] MEDS: LOSARTAN POTASSIUM 50 MG TABLET PO SCH (09:41)
[2021-08-08] MEDS: GABAPENTIN 300 MG CAPSULE PO SCH ×2 (09:41→17:07)
[2021-08-08] MEDS: APIXABAN 5 MG TABLET PO SCH ×2 (09:42→17:11)
[2021-08-08] MEDS: CARBAMAZEPINE 100 MG TAB.CHEW PO SCH (13:15)
[2021-08-08 16:37] VITALS: BP 100/58
[2021-08-08] MEDS: ATORVASTATIN 10 MG TABLET PO SCH (17:07)
[2021-08-08 20:00] VITALS: BP 121/72
[2021-08-09] MEDS: hydrOXYzine PAMOATE 25 MG CAPSULE PO PRN (02:29)
--- NOTE | 2021-08-09 02:32 | NUR ---
GPS RN NOTE: ANXIETY PATIENT C/O FEELING ANXIOUS/RESTLESS AND REQUESTED TO TAKE VISTARIL. PRN VISTARIL 25 MG PO ADMINISTERED.
[2021-08-09 08:00] VITALS: BP 113/63
[2021-08-09] MEDS: CARBAMAZEPINE 200 MG TABLET PO SCH ×2 (08:14→16:36)
[2021-08-09] MEDS: PANTOPRAZOLE 40 MG TABLET.DR PO SCH (08:14)
[2021-08-09] MEDS: ENSURE ENLIVE CHOC 237 ML CAN PO SCH ×2 (08:14→16:37)
[2021-08-09] MEDS: GABAPENTIN 300 MG CAPSULE PO SCH ×2 (08:14→16:37)
[2021-08-09] MEDS: TAMSULOSIN 0.4 MG CAP.SR.24H PO SCH (08:14)
[2021-08-09] MEDS: OLANZAPINE 10 MG TABLET PO SCH ×2 (08:14→16:36)
[2021-08-09] MEDS: APIXABAN 5 MG TABLET PO SCH ×2 (08:15→16:42)
[2021-08-09] MEDS: LOSARTAN POTASSIUM 50 MG TABLET PO SCH (08:15)
[2021-08-09] MEDS: CARBAMAZEPINE 100 MG TAB.CHEW PO SCH (12:40)
[2021-08-09 16:00] VITALS: BP 103/66
[2021-08-09] MEDS: ATORVASTATIN 10 MG TABLET PO SCH (17:16)
[2021-08-09 20:00] VITALS: BP 108/68
[2021-08-10 08:00] VITALS: BP 121/72
--- NOTE | 2021-08-10 08:08 | NUR ---
SW Discharge Note: Patient will be discharged to [facility] facility, [facility], located at [address] [place] [address] ([phone]) . Please arrange ambulance transportation at 2PM. outreach and education social worker spoke with Kerline whitlock ([phone]), who stated patient will be accepted at the facility today. Patient does not have any supportive contact. Patient is alert and oriented x3 and is unable to plan for self-care. Patient denies any suicidal or homicidal ideation. Patients sister Leena ([phone]) is aware and agreeable with dc. Patient will follow-up at the facility with Dr. Burton (psychiatrist) [address] [address]; ([phone]) and ([facility]) Dr. Platt [address] [facility] [address] [address]; ([phone]). Patient refused to sign the homeless waiver upon discharge and a copy was placed in the chart. Homeless resources were provided and include [address] information line for shelters and homeless resources. A copy of all resources given to patient was also placed in the chart. Patient presents with euthymic mood and congruent affect.
[2021-08-10] MEDS: APIXABAN 5 MG TABLET PO SCH (08:24)
[2021-08-10] MEDS: PANTOPRAZOLE 40 MG TABLET.DR PO SCH (08:24)
[2021-08-10] MEDS: CARBAMAZEPINE 200 MG TABLET PO SCH (08:25)
[2021-08-10] MEDS: TAMSULOSIN 0.4 MG CAP.SR.24H PO SCH (08:25)
[2021-08-10] MEDS: GABAPENTIN 300 MG CAPSULE PO SCH (08:25)
[2021-08-10] MEDS: OLANZAPINE 10 MG TABLET PO SCH (08:25)
[2021-08-10 08:27] VITALS: BP 121/72
[2021-08-10] MEDS: LOSARTAN POTASSIUM 50 MG TABLET PO SCH (08:27)
[2021-08-10] MEDS: ENSURE ENLIVE CHOC 237 ML CAN PO SCH (08:27)
[2021-08-10] MEDS: ALBUTEROL FS 2.5 MG/3 ML VIAL.NEB NEB PRN (11:00)
[2021-08-10] MEDS: CARBAMAZEPINE 100 MG TAB.CHEW PO SCH (12:47)
--- NOTE | 2021-08-10 13:15 | NUR ---
RN-DISCHARGE NOTES PATIENT HAD A DISCHARGE ORDER FROM DR. THORPE (PSYCHIATRIST) DR. VALENCIA ( MANAGER MATERIAL) MEDICALLY CLEARED PATIENT. PATIENT DID NOT VERBALIZE SI/HI,DENIES VISUAL/AUDITORY HALLUCINATIONS AT THE TIME OF DISCHARGE. PATIENT LEFT THE UNIT IN STABLE CONDITION A/O X3, ALL BELONGINGS WAS GIVEN BACK TO THE PATIENT. NO FAMILY TO NOTIFY ON THE DISCHARGE.PATIENT REFUSED FULL BODY ASSESSMENT PRIOR TO DISCHARGE.REPORT WAS GIVEN TO JOB ( FACILITY MOBILE GAME ENGINEER).
== END 2021-08-10 13:15 | DRG 885 ==
LOC: ER 15:54 → GPS 21:53
PROVIDERS: ADMIT Psychiatry & Neurology Psychiatry; ATTEND Internal Medicine
DX: F31.64 Bipolar disorder, current episode mixed, severe, with psychotic features (principal); R45.851 Suicidal ideations; G93.40 Encephalopathy, unspecified; F29 Unspecified psychosis not due to a substance or known physiological condition; I10 Essential (primary) hypertension; E78.5 Hyperlipidemia, unspecified; Z79.01 Long term (current) use of anticoagulants; F15.10 Other stimulant abuse, uncomplicated; F12.10 Cannabis abuse, uncomplicated; F10.10 Alcohol abuse, uncomplicated; Y90.0 Blood alcohol level of less than 20 mg/100 ml; Z20.822 Contact with and (suspected) exposure to COVID-19; K21.9 Gastro-esophageal reflux disease without esophagitis; Z88.0 Allergy status to penicillin; Z88.8 Allergy status to other drugs, medicaments and biological substances; Z79.51 Long term (current) use of inhaled steroids; Z79.899 Other long term (current) drug therapy; J45.909 Unspecified asthma, uncomplicated; Z59.00 Homelessness unspecified; Z86.711 Personal history of pulmonary embolism; F17.210 Nicotine dependence, cigarettes, uncomplicated; N40.0 Benign prostatic hyperplasia without lower urinary tract symptoms
CPT/HCPCS: 36415; 80048-TC; 80053-TC; 80061-TC; 80076-TC; 80156-TC; 82962-TC; 85025-TC; 87081-TC; 94799-TC; C9803; G0480; Q0177

== ENCOUNTER 2021-08-26 06:41 | Emergency (ER) | payer MEDICARE, OTHER ==
[~2021-08-26] VITALS: Ht 162.6 cm; Wt 75.4 kg
[~2021-08-26 06:41] MED LIST changes: +LITH300T3 PO; +OLAN15TA3 PO
[2021-08-26 07:16] LABS: BASOPHILS # (AUTO) 0.1 K/uL (0.0-0.2); BASOPHILS % (AUTO) 0.7 % (0.0-2.0); EOSINOPHILS % (AUTO) 2.8 % (0.0-6.0); HEMATOCRIT 41 % (39-51); HEMOGLOBIN 14.1 g/dL (13.5-17.5); LYMPHOCYTES # (AUTO) 2.1 K/uL (0.8-4.8); MEAN CORPUSCULAR HGB CONC 35 g/dl (31.0-36.0); MEAN CORPUSCULAR VOLUME 90 fL (80-96); MONOCYTES # (AUTO) 0.7 K/uL (0.1-1.30); MONOCYTES % (AUTO) 8.8 % (2.0-12.0); NEUTROPHILS % (AUTO) 61.7 % (43.0-81.0); PLATELET COUNT (AUTO) 251 K/uL (150-450); RED BLOOD CELL COUNT(AUTO) 4.55 MIL/uL (4.5-6.0); WHITE BLOOD COUNT (AUTO) 8.2 K/uL (4.3-11.0)
[2021-08-26 07:21] LABS: BILIRUBIN,URINE NEGATIVE (NEGATIVE); COLOR,URINE YELLOW (YELLOW); LEUKOCYTE ESTERASE ,URINE NEGATIVE (NEGATIVE); NITRITE, URINE NEGATIVE (NEGATIVE); PROTEIN,URINE NEGATIVE (NEGATIVE); UGLUCOSE NEGATIVE (NEGATIVE); UROBILINOGEN,URINE 0.2 EU/dL (0.2)
[2021-08-26 07:33] LABS: ALANINE AMINOTRANSFERASE 16 U/L (12-78); ALBUMIN 3.7 g/dL (3.4-5.0); ALCOHOL, BLOOD < 3 mg/dL (0-0); ALKALINE PHOSPHATASE 86 U/L (46-116); ASPARTATE AMINOTRANSFERASE 14 U/L (15-37); BILIRUBIN,DIRECT 0.1 mg/dL (0.0-0.2); BILIRUBIN,TOTAL 0.3 mg/dL (0.2-1.0); CALCIUM, SERUM 9.1 mg/dL (8.5-10.1); CARBON DIOXIDE 23 mmol/L (21-32); CHLORIDE 103 mmol/L (98-107); GLUCOSE 98 mg/dL (74-106); POTASSIUM 3.7 mmol/L (3.5-5.1); SODIUM SERUM 136 mmol/L (136-145); TOTAL PROTEIN, SERUM 7.6 g/dL (6.4-8.2); UREA NITROGEN, BLOOD 19 mg/dL (7-18)
[2021-08-26 07:36] LABS: ACETAMINOPHEN 0 ug/ml (10-30)
[2021-08-26 15:30] VITALS: BP 125/64
== END 2021-08-26 15:57 ==
LOC: ER 06:49
DX: R45.851 Suicidal ideations (principal); F19.10 Other psychoactive substance abuse, uncomplicated; F17.200 Nicotine dependence, unspecified, uncomplicated; Z59.00 Homelessness unspecified; F31.9 Bipolar disorder, unspecified; F20.9 Schizophrenia, unspecified; J45.909 Unspecified asthma, uncomplicated; E78.5 Hyperlipidemia, unspecified; Z86.711 Personal history of pulmonary embolism; N40.0 Benign prostatic hyperplasia without lower urinary tract symptoms; I10 Essential (primary) hypertension; Z88.0 Allergy status to penicillin; Z88.8 Allergy status to other drugs, medicaments and biological substances; Z79.01 Long term (current) use of anticoagulants
CPT/HCPCS: 36415; 80048-TC; 80076-TC; 85025-TC; C9803; G0480